=== PATIENT | female | born 1960 | race Caucasian/White ===

== ENCOUNTER 2018-06-06 01:56 | Inpatient (IN) ==
[2018-06-06] MEDS ORDERED: Naloxone 0.4 MG/ML INJ IVP PRN ×3 (04:01→05:34)
--- NOTE | 2018-06-06 04:03 | Internal Med History&Physical ---
<Sandi John - Last Filed: 06/06/18 05:05> Date of Encounter: 06/06/18 Time of Encounter: 04:03 Internal Medicine - H&P: HPI Chief complaint: palpitations Admitted From: Hospital to Hospital Transfer Plans for Post Hospital Care: Home History of present illness: Ms. Schmitz is a 58 year old female history of A fib presented to [place] ED with palpitations. Describes heavy feeling in her chest with shortness of breath above her baseline onset 1:30 yesterday. In ED, she was tachycardia 155 and found to be in A fib with RVR and started on cardizem drip- tachycardia improved to 90-100s. She was last treated for A fib with RVR at [place] one year ago and she describes this feeling as similar but less severe - this has occurred several times in past. She last saw [facility] one year ago and remembers having tests but not what kind - records show EKGs. She reports adherence with her medications but states there is one she can't remember name of. She has history of migraine headaches and start one earlier this week - it was same as her normal but vision was blurred then - now head with out changes in vision. She has COPD; cough and mucus is at baseline. Smoking 45 pkyr . She used oxygen 2L at night after pulse ox overnight but has never had sleep study. She was newly diagnosed with diabetes last week and started on Jardiance after puritic reaction to metformin. She was hypothyroid post ablation but was told to stop taking medication because normal TSH. She is adopted but knows she have a family history of CA in sibling. Past Med Surg Social Fam HX - Past Medical History Medical history: asthma, atrial fibrillation, diabetes, hypertension, kidney stones, migraine, thyroid disease Psychiatric history: anxiety - Past Surgical History Surgical History: cholecystectomy, hysterectomy, other Additional surgical history: feet sx - Social History Smoking Status: Current every day smoker Packs per day: 1.5 Smokeless Tobacco Status: No Alcohol use: none Drug use: none Internal Medicine - H&P: Meds Albuterol Sulfate [Proventil Hfa] 2 puff IH Q4HR PRN 12/09/15 [History] Aspirin [Ecotrin] 325 mg PO DAILY 06/05/18 [History] Diltiazem CD (24hr) [Cardizem CD] 240 mg PO DAILY 06/05/18 [History] Empagliflozin [Jardiance] 10 mg PO DAILY 06/05/18 [History] hydroCHLOROthiazide [Hydrochlorothiazide] 25 mg PO DAILY 06/05/18 [History] 3 Allergy/AdvReac Type Severity Reaction Status Date / Time aspartame Allergy Hives Verified 02/23/16 21:57 Penicillins [PCN] Allergy Hives Verified 02/23/16 21:57 All Systems PM: A 10-system review of systems was performed and is negative for pertinent findings except as documented above in the HPI. - Constitutional Constitutional: as per HPI, no chills, no fatigue, no fever(s) - EENT Eyes: blurry vision, change in vision, no loss of vision - Cardiovascular Cardiovascular ROS IM: chest pain, diaphoresis, dyspnea, palpitations, no lightheadedness, no syncope - Respiratory Respiratory: cough, dyspnea, excessive phlegm production, no wheezing, no stridor - Gastrointestinal Gastrointestinal: no constipation, no diarrhea, no vomiting - Genitourinary Genitourinary: no difficulty urinating, no dysuria, no urinary frequency - Integumentary Integumentary IM: pruritus, rash Additional comments: resolved off metformin - Neurological Neurological ROS: headache(s) - Endocrine Endocrine IM: polydipsia, no polyphagia, no polyuria - Constitutional General appearance: Present: A&O X 3, pleasant, no acute distress, obese, answers questions appropriately Exam: sitting comfortably on bed laughing - Head Head exam: Present: atraumatic, normocephalic - ENT ENT exam: Present: mucous membranes moist, normal oropharynx - Respiratory Respiratory exam: Present: wheezes. Absent: accessory muscle use, rales, respiratory distress Additional comments: mild wheeze upper left lobe - Cardiovascular Cardiovascular exam: Present: irregular rhythm, tachycardia - GI/Abdominal GI/Abdominal exam: Present: normal bowel sounds, soft. Absent: guarding, mass, tenderness - Extremities Exam Extremities exam: Present: full ROM, pedal edema, radial pulses palpable and symmetrical. Absent: calf tenderness, tenderness Additional comments: trace edema - Psychiatric Psychiatric exam: Present: normal affect, normal mood. Absent: agitated - Assessment and plan (1) Atrial fibrillation with rapid ventricular response Current Visit: No Status: Acute Assessment and plan: CADVAS score 3; unknown etiology of repeated episodes of RVR with out apparent inciting factor - continue to titrate Cardizem drip - start heparin drip - consult cardiology as established patient (2) COPD (chronic obstructive pulmonary disease) Current Visit: Yes Status: Acute Assessment and plan: suspect at baseline; Chest X-ray shows COPD but no acute process - continue home inhalers - counseled to cease smoking - duoneb q 6hr PRN Qualifiers: Qualified Code(s): J44.9 - Chronic obstructive pulmonary disease, unspecified (3) Diabetes mellitus Current Visit: Yes Status: Acute Assessment and plan: -hold jardiance - start ISS - diabetic diet Qualifiers: Diabetes mellitus type: type 2 Diabetes mellitus skilled nursing insulin use: without vermin exterminator use Diabetes mellitus complication status: without complication Qualified Code(s): E11.9 - Type 2 diabetes mellitus without complications (4) Polycythemia Current Visit: Yes Status: Chronic Assessment and plan: HgB 16.6 at her baseline; suspect due to smoking or underlying sleep apnea - consider out patient sleep study - Time Spent With Patient Total time spent is greater than 50% in coordination of care (as documented) at patient's floor/unit and/or counseling patient: 25 - 35 minutes <Sylvain Lara - Last Filed: 06/06/18 07:41> Date of Encounter: 06/06/18 Internal Medicine - H&P: HPI History of present illness: Ms. Schmitz is a 58 year old female All Systems PM: A 10-system review of systems was performed and is negative for pertinent findings except as documented above in the HPI. - Constitutional Vitals: Temp Pulse Resp BP Pulse Ox 98.2 F 88 16 114/64 91 06/06/18 07:21 06/06/18 07:21 06/06/18 07:21 06/06/18 07:21 06/06/18 07:21 - Time Spent With Patient Total time spent is greater than 50% in coordination of care (as documented) at patient's floor/unit and/or counseling patient: - Attending Attestation Patient seen and examined. Chart was reviewed. A. fib with RVR. Now improved on Cardizem drip. Attempt to wean off and transition to PO. Patient has a CHADsVASC OF 3. Discussed risk of stroke with patient and need for prophylaxis. Will start heparin drip. Cardiology consult for the morning.
[2018-06-06] MEDS ORDERED: Ondansetron ODT 4 MG TAB.RAPDIS SL PRN (04:07)
[2018-06-06] MEDS ORDERED: Acetaminophen/Aspirin/Caffeine TABLET PO PRN (04:17)
[2018-06-06] MEDS ORDERED: D5% in Water 1,000 ML IVC PRN (04:42)
[2018-06-06] MEDS ORDERED: *HR* Dextrose 50 % in Water (Syg) 50 ML SYRINGE IVP PRN (04:42)
[2018-06-06] MEDS ORDERED: Dextrose Gel 15 GM/37.5 ML TUBE PO PRN ×2 (04:42)
[2018-06-06] MEDS ORDERED: *HR* Heparin 5,000 UNIT/ML VIAL IVP ONE (04:43)
[2018-06-06] MEDS ORDERED: *HR* Heparin 5,000 UNIT/ML VIAL IVP PRN ×2 (04:43)
[2018-06-06] MEDS ORDERED: Heparin 25,000 UNIT/500 ML D5W 25,000 UNIT/500 ML BAG IVC SCH (04:45)
[2018-06-06] MEDS ORDERED: Ipratropium/Albuterol Neb 3 ML IH PRN (04:53)
[2018-06-06 06:01] LABS: Heparin anti-factor XA UFH 0.07 IU/mL (0.30-0.70); INR 1.1; Prothrombin Time 11.9 Seconds (9.4-12.1)
[2018-06-06 06:03] LABS: Activated Partial Thrombo Time 36.5 Seconds (26.0-36.0)
[2018-06-06] MEDS: Insulin LISPRO 300 UNITS/3 ML VIAL SQ SCH ×2 (09:09→12:02)
--- NOTE | 2018-06-06 09:52 | Event Note ---
Date of Encounter: 06/06/18 Time of Encounter: 09:45 Seen and assessed. Agree with plan per night time hospitalist. Will aim to titrate off cardizem drip and start on home dose of po cardizem. Pt doan CHDS2 Vasc score of 3 with diabetes, htn and female sex. Was started on heparin drip overnight. Will transition to xarelto as tolerated. Cardiology was consulted and appreciate recs
[2018-06-06] MEDS ORDERED: Diltiazem CD (24hr) 240 MG CAPSULE PO SCH (10:00)
--- NOTE | 2018-06-06 10:32 | Cardiology Consult Note ---
Date of Encounter: 06/06/18 Time of Encounter: 10:28 Assessment and Plan (1) PAF (paroxysmal atrial fibrillation) Current Visit: Yes Status: Acute Paroxysmal atrial fibrillation, which is not a new diagnosis. Previous TTE [place] normal LV function, stress test negative for ischemia. CHADS-VASc (HTN, DM, FM) 3. Recommend transition from aspirin to for anticoagulation. We discussed the risks, benefits, and alternatives to full AC. She voiced understanding and wishes to proceed. Agree with Xarelto 20 mg daily. Change cardizem back to 240 mg daily. Will add low dose BB. We discussed the possibility of antiarrhythmic therapy. States she will consider in the future. No further inpatient recommendations appear to be necessary at this time. Risk factor modification encouraged, especially tobacco cessation. Outpatient follow-up with cardiology encouraged. Cardiology will sign off. Please call with any questions or concerns. Discussion w patient/family: The assessment and plan as outlined above was discussed with the patient and/or family members who expressed understanding and agreement. All questions were answered. Thank you for involving us in the care of your patient. Please call with any questions. History of Present Illness Consult date: 06/06/18 Requesting physician: Sylvain Lara Consult reason: AF Chief complaint: AF History of present illness: Ms. Schmitz is a 58 year old female with a history of PAF. Presented to an outside ER yesterday with complaints of palpitations. Noted to be in AF with RVR and transferred to [place]. Placed on a Cardizem and heparin drip overnight. Overall, reports she feels much better today. She would like to go home. Holter monitor 04/2016: Sinus rhythm with an average heart rate of 92. Rare PVCs , 5 total. One 4 beat NSVT. Rare PACs averaging 1.7 per hour. No atrial fibrillation. TTE 04/05/2016: LVEF 65-70%. Normal LV, RV size and function. Mild diastolic dysfunction. No significant valvular dysfunction. RVSP not well obtained due to lack of TR. Lexiscan nuclear stress test 03/2016: Perfusion imaging negative for ischemia or prior infarct. No significant ECG changes with regadenoson. Gated LVEF greater than 70%. Past Med Surg Social Fam HX - Past Medical History Medical history: asthma, atrial fibrillation, diabetes, hypertension, kidney stones, migraine, thyroid disease Psychiatric history: anxiety - Past Surgical History Surgical History: cholecystectomy, hysterectomy, other Additional surgical history: feet sx - Social History Smoking Status: Current every day smoker Packs per day: 1.5 Smokeless Tobacco Status: No Alcohol use: none Drug use: none Medications and Allergies Albuterol Sulfate [Proventil Hfa] 2 puff IH Q4HR PRN 12/09/15 [History] Aspirin [Ecotrin] 325 mg PO DAILY 06/05/18 [History] Diltiazem CD (24hr) [Cardizem CD] 240 mg PO DAILY 06/05/18 [History] Empagliflozin [Jardiance] 10 mg PO DAILY 06/05/18 [History] hydroCHLOROthiazide [Hydrochlorothiazide] 25 mg PO DAILY 06/05/18 [History] 3 Allergy/AdvReac Type Severity Reaction Status Date / Time aspartame Allergy Hives Verified 02/23/16 21:57 Penicillins [PCN] Allergy Hives Verified 02/23/16 21:57 All Systems Review: The remainder of the systems were reviewed and are negative - Cardiovascular Cardiovascular: as per HPI, palpitations Physical Examination Vital Signs, Last 4 Hours Temp Pulse Resp BP Pulse Ox 06/06/18 07:21 98.2 F 88 16 114/64 91 General: Conversant, No Apparent Distress HEENT: Atraumatic, Normocephaly, Mucus Membranes Moist Neck: No JVD Cardiac: Reg Rate and Rhythm, Normal S1 and S2, No Murmur Lungs: Other (Scattered rhonchi noted.) Neuro: Alert and responsive, No focal deficits noted Abdomen: Soft, Non-Tender Skin: No rashes noted on visualized skin Musculoskeletal: No Chest Wall Tenderness Extremities: No Clubbing, No Cyanosis, No Edema Results Lab Results 06/06/18 06/06/18 05:43 05:43 INR 1.1 APTT 36.5 H - Imaging and Cardiology Stress Test: report reviewed Echo: report reviewed - EKG Interpretation EKG results cardiology: personally reviewed Consult Discharge Plan - Plan Referrals: Candi Tyler, GALLERY OR MUSEUM ATTENDANT [Primary Care Provider] -
[2018-06-06] MEDS ORDERED: Metoprolol XL (24 HR) Succ 25 MG TAB.ER.24H PO SCH (10:45)
--- NOTE | 2018-06-06 11:30 | Discharge Summary ---
Orders not resulted at time of discharge: Pending orders 06/06/18 07:00 EKG [ECG 12 lead ECG] [ECG] Routine 06/06/18 12:30 Heparin anti-factor XA UFH [COAG] Timed 06/07/18 04:00 Basic Metabolic Panel AM 0400 Complete Blood Count [HEME] AM 0400 Date of Encounter: 06/06/18 Time of Encounter: 11:00 - Discharge Diagnosis (1) Atrial fibrillation with rapid ventricular response Priority: Primary Status: Acute Assessment and Plan: 58 year old female history of A fib presented to [place] ED with palpitations. Describes heavy feeling in her chest with shortness of breath above her baseline onset 1:30 yesterday. In ED, she was tachycardia 155 and found to be in A fib with RVR and started on cardizem drip- tachycardia improved to 90- 100s. She was last treated for A fib with RVR at [place] one year ago and she describes this feeling as similar but less severe - this has occurred several times in past. She was started on a cardizem drip for afib with RVR and heparin drip for anticoagulation for a [id number] score of 3. She was able to be successfully weaned off her cardizem drip and transitioned to po cardizem and metoprolol. She was also transitioned from heparin drip to xarelto. Patient made a sooner than anticipated recovery and will be discharged on cardizem and xarelto per cardiology recs. She was discharged in a stable condition. 35 minutes was spent discharging this patient (2) COPD (chronic obstructive pulmonary disease) Priority: Secondary Status: Acute Qualifiers: Qualified Code(s): J44.9 - Chronic obstructive pulmonary disease, unspecified (3) Diabetes mellitus Priority: Secondary Status: Acute Qualifiers: Diabetes mellitus type: type 2 Diabetes mellitus terminal superintendent insulin use: without terminal superintendent use Diabetes mellitus complication status: without complication Qualified Code(s): E11.9 - Type 2 diabetes mellitus without complications Hospital course: Ms. Schmitz is a 58 year old female - Time Spent with Patient Total time spent providing and/or coordinating discharge services: - Discharge Medications Home Medications: Aspirin [Ecotrin] 325 mg PO DAILY 06/05/18 [History] Diltiazem CD (24hr) [Cardizem CD] 240 mg PO DAILY 06/05/18 [History] Empagliflozin [Jardiance] 10 mg PO DAILY 06/05/18 [History] hydroCHLOROthiazide [Hydrochlorothiazide] 12.5 mg PO DAILY 06/05/18 [History] Albuterol Sulfate [Ventolin Hfa] 2 puff IH Q6H PRN 06/06/18 [History] Atorvastatin Calcium [Lipitor] 20 mg PO HS 06/06/18 [History] Diltiazem CD (24hr) [Cardizem CD] 240 mg PO DAILY #30 cap.er.24h 06/06/18 [Rx] Ergocalciferol (VITAMIN D2) [Vitamin D2] 50,000 unit PO REY 06/06/18 [History] FLUoxetine HCl [Prozac] 20 mg PO DAILY 06/06/18 [History] Fluticasone/Vilanterol [Breo Ellipta 100-25 Mcg INH] 1 puff IH DAILY 06/06/18 [ History] Losartan Potassium [Cozaar] 50 mg PO DAILY 06/06/18 [History] Metformin HCl [Glucophage] 1,000 mg PO BID 06/06/18 [History] Metoprolol XL (24 HR) Succ [Toprol Xl] 25 mg PO DAILY 30 Days #30 tab.er.24h 10/23 [Rx] Rivaroxaban [Xarelto] 20 mg PO 1700 30 Days #30 tablet 06/06/18 [Rx] Allergies/Adverse Reactions: 3 Allergy/AdvReac Type Severity Reaction Status Date / Time aspartame Allergy Hives Verified 06/06/18 13:54 Penicillins [PCN] Allergy Hives Verified 06/06/18 13:54 Date of admission: 06/06/18 03:07 Primary care physician: Candi Tyler CNP Consults: 06/06/18 04:42 Consult to Diabetes Education [CONS] Routine Comment: Reason for Consult: new diagnosis last week - Constitutional Vitals: Temp Pulse Resp BP Pulse Ox 98.2 F 88 16 114/64 91 06/06/18 07:21 06/06/18 07:21 06/06/18 07:21 06/06/18 07:21 06/06/18 07:21 General appearance: Present: A&O X 3, pleasant, no acute distress, obese, answers questions appropriately Exam: comfortable. NAD - Head Head exam: Present: atraumatic, normocephalic - Eye Eye exam: Present: PERRL, conjuntiva pink, sclera anicteric Pupils: Present: PERRL - Neck Neck exam general surgery: Present: supple, trachea midline. Absent: lymphadenopathy - Respiratory Respiratory exam: Present: CTAB. Absent: accessory muscle use, rales, rhonchi, wheezes - Cardiovascular Cardiovascular exam: Present: RRR, +S1, +S2. Absent: diastolic murmur, gallop, rubs, systolic murmur - GI/Abdominal GI/Abdominal exam: Present: normal bowel sounds, soft, no peritoneal signs. Absent: distended, tenderness - Extremities Exam Extremities exam: Present: warm, radial pulses palpable and symmetrical. Absent : calf tenderness, cyanotic, pedal edema - Neurological Exam Neurological exam: Present: CN II-XII intact, oriented X3, no focal deficits. Absent: pronater drift, facial droop, speech deficit - Skin Skin exam: Present: dry, intact - Patient Status Disposition: Home, Self-Care Condition: Good - Discharge Instructions Instructions: Metoprolol (By mouth), Diltiazem (By mouth), Rivaroxaban (By mouth), Atrial Fibrillation (DC), Diabetes Mellitus Type 2 in Adults (DC), Chronic Obstructive Pulmonary Disease (DC) Follow Up With: Candi Tyler WEB PRESSMAN [Primary Care Provider] -
[2018-06-06] MEDS ORDERED: *HR* Rivaroxaban 10 MG TABLET PO SCH ×2 (11:45→17:00)
[2018-06-06 15:47] VITALS: BP 125/59
--- NOTE | 2018-06-09 21:27 | Electrocardiograph Report ---
[place] [id number] Test Date: 2018-06-06 Pat Name: Nasra Schmitz Department: 111 Room: 2N4 Gender: F Geology Technician: : 1960 Requested By: Tatyana Perez Order Number: [id number] Reading MD: Pennie Watkins Measurements Intervals [place] Rate: 70 P: 76 LA: 207 QRS: 53 QRSD: 99 T: 73 QT: 408 QTc: 429 Interpretive Statements SINUS RHYTHM NONSPECIFIC T-WAVE ABNORMALITY Electronically Signed On 06-09-2018 21:26:02 EDT by Pennie Watkins
== END 2018-06-06 17:30 | disposition home or self-care (01) | DRG 310 ==
LOC: 2NENU
PROVIDERS: ADMIT Internal Medicine; ATTEND Internal Medicine

== ENCOUNTER 2018-07-13 13:17 | Inpatient (IN) ==
[2018-07-20] MEDS ORDERED: Naloxone 0.4 MG/ML INJ IVP PRN (08:51)
--- NOTE | 2018-07-20 08:56 | History & Physical Report ---
Date of Encounter: 07/20/18 Time of Encounter: 09:00 24 Hour HP Update - Instructions Instructions: If the History and Physical is less than 30 days old and was completed prior to A.M. admission and or procedure and has NOT been updated on calendar day of procedure please complete this update prior to performing procedure. - Update Patient reports changes in Medical Condition: No Changes in examination, assessment, or condition: No Changes in Medication: No Preop tests/diagnostics Reviewed: Yes Additions to current History and Physical: Seen by Dr. Marcos aWtkins 07/01/2018-- direct admit for [facility]
[2018-07-20] MEDS: Empagliflozin [Jardiance] 10 MG PO SCH (11:31)
[2018-07-20] MEDS: hydroCHLOROthiazide 25 MG TABLET PO SCH (11:31)
[2018-07-20] MEDS: Diltiazem CD (24hr) 240 MG CAPSULE PO SCH (11:31)
[2018-07-20] MEDS: *HR* Rivaroxaban 10 MG TABLET PO SCH (16:40)
[2018-07-20] MEDS: Budesonide/Formoterol 160/4.5 1 PUFF INH IH SCH (19:38)
[2018-07-20] MEDS ORDERED: Benzonatate 100 MG CAPSULE PO PRN (21:59)
[2018-07-20] MEDS ORDERED: Saline Nasal Spray 44 ML BOTTLE NS PRN (22:00)
[2018-07-21] MEDS: Levalbuterol Neb 1.25 MG/3 ML IH SCH ×4 (04:19→21:58)
--- NOTE | 2018-07-21 09:11 | Electrophysiology ProgressNote ---
Date of Encounter: 07/21/18 Time of Encounter: 09:10 Assessment and Plan (1) PAF (paroxysmal atrial fibrillation) Current Visit: No Status: Chronic Per EP: Admitted for Rythmol and initiation for symptomatic paroxysmal atrial fibrillation. Status post 3 doses of Rythmol 150 mg by mouth every 8 hours. Remain sinus rhythm on telemetry. Current ECG shows: SR 77, QRS 107ms. Will make nothing by mouth after midnight in case needs cardioversion tomorrow. No YRN would be warranted. Anticipate discharge to home tomorrow. Regarding long-term anticoagulation, remains on Xarelto-- reports no missed doses for the past 30 days. Discussion w patient/family: The assessment and plan as outlined above was discussed with the patient who expressed understanding and agreement. All questions were answered. Thank you for involving us in the care of your patient. Please call with any questions. Subjective Principal diagnosis: PAF, antiarrhythmic initiation Interval history: Patient denies any chest pain, shortness of breath, palpitations. Reports has history of COPD and utilizes oxygen at night. Objective Vital Signs, Last 4 Hours Temp Pulse Resp BP Pulse Ox 07/21/18 07:47 97.9 F 81 18 134/76 89 General: Conversant, No Apparent Distress HEENT: Atraumatic, Normocephaly, Mucus Membranes Moist Neck: No JVD, Normal carotid pulses Cardiac: Reg Rate and Rhythm, Normal S1 and S2, No Murmur Lungs: Normal Breath Sounds, No Wheeze, Rales, Rhonchi Neuro: Alert and responsive, No focal deficits noted Abdomen: Soft, Non-Tender Skin: No rashes noted on visualized skin Musculoskeletal: No Chest Wall Tenderness Extremities: No Clubbing, No Cyanosis, No Edema, Normal Pulses Results - EKG Interpretation EKG results cardiology: other (Telemetry reviewed with average heart rate the past 12 hours 79, currently sinus rhythm in the 80s, no events noted) - VTE Reasons for not Prescribing Prophylaxis: Treatment not Indicated - Low risk for VTE Consult Discharge Plan - Plan Referrals: Candi Tyler, BED SETTER [Primary Care Provider] -
[2018-07-21] MEDS: hydroCHLOROthiazide 25 MG TABLET PO SCH (10:21)
[2018-07-21] MEDS: Diltiazem CD (24hr) 240 MG CAPSULE PO SCH (10:21)
[2018-07-21] MEDS: Empagliflozin [Jardiance] 10 MG PO SCH (10:22)
[2018-07-21] MEDS: Budesonide/Formoterol 160/4.5 1 PUFF INH IH SCH ×2 (10:54→21:58)
[2018-07-21] MEDS: *HR* Rivaroxaban 10 MG TABLET PO SCH (17:52)
[2018-07-22] MEDS: Levalbuterol Neb 1.25 MG/3 ML IH SCH ×4 (03:37→21:18)
[2018-07-22 07:21] VITALS: BP 133/74
[2018-07-22] MEDS: hydroCHLOROthiazide 25 MG TABLET PO SCH (09:27)
[2018-07-22] MEDS: Diltiazem CD (24hr) 240 MG CAPSULE PO SCH (09:27)
[2018-07-22] MEDS: Empagliflozin [Jardiance] 10 MG PO SCH (09:28)
[2018-07-22] MEDS: Budesonide/Formoterol 160/4.5 1 PUFF INH IH SCH ×2 (10:11→21:18)
--- NOTE | 2018-07-22 10:12 | Discharge Summary ---
- NOTES TO OUTPATIENT PROVIDER Notes to Outpatient Provider: Admitted for anti-arrythmic initiation with rhythmol. Orders not resulted at time of discharge: Pending orders 07/22/18 06:00 ECG 12 lead ECG [ECG] AM 0600 07/23/18 06:00 ECG 12 lead ECG [ECG] AM 0600 Date of Encounter: 07/22/18 Time of Encounter: 09:00 - Discharge Diagnosis (1) PAF (paroxysmal atrial fibrillation) Priority: Primary Status: Chronic Comments: Admitted for rhythmol initiation for known PAF. - Hospital Course Hospital course: Ms. Schmitz is a 58 year old female who was admitted to [facility] for rhythmol ( 150mg Q8 hours) initiation for PAF. Patient is s/p 6 total doses of rhythmol. ECG today with SR, HR 80. QRS 96. QRS stable. Baseline QRS 96ms. Patient also takes cardizem CD 240mg. On xarelto for anticoagulation. Patient has remained SR , average HR previous 12 hours 79. Patient denies bleeding or blood loss. Patient is being prepped for discharge home in stable condition. Patient educated on importance of Q8 hour medication and no missed doses of medication. Patient denies complaints. Patient will follow with [facility], follow up set. - Time Spent with Patient Total time spent providing and/or coordinating discharge services: Less than 30 minutes - Discharge Medications Prescriptions: Propafenone [Rhythmol] 150 mg PO Q8H #90 tablet Home Medications: Empagliflozin [Jardiance] 10 mg PO DAILY 06/05/18 [History] hydroCHLOROthiazide [Hydrochlorothiazide] 12.5 mg PO DAILY 06/05/18 [History] Albuterol Sulfate [Ventolin Hfa] 2 puff IH Q6H PRN 06/06/18 [History] Atorvastatin Calcium [Lipitor] 20 mg PO HS 06/06/18 [History] Ergocalciferol (VITAMIN D2) [Vitamin D2] 50,000 unit PO REY 06/06/18 [History] Fluticasone/Vilanterol [Breo Ellipta 100-25 Mcg INH] 1 puff IH DAILY 06/06/18 [ History] Losartan Potassium [Cozaar] 25 mg PO DAILY 06/06/18 [History] Rivaroxaban [Xarelto] 20 mg PO 1700 30 Days #30 tablet 06/06/18 [Rx] Diltiazem HCl [Cardizem LA] 240 mg PO DAILY 07/03/18 [History] Propafenone [Rhythmol] 150 mg PO Q8H #90 tablet 07/22/18 [Rx] Allergies/Adverse Reactions: 3 Allergy/AdvReac Type Severity Reaction Status Date / Time aspartame Allergy Hives Verified 07/03/18 12:38 Penicillins [PCN] Allergy Hives Verified 07/03/18 12:38 Date of admission: 07/20/18 08:44 Primary care physician: Candi Tyler CNP Consults: 07/20/18 22:00 Consult to Respiratory Therapy [CONS] Routine Reason for Consult: Add flutter valve to patients breathing treatments Call Completed: Yes Discharging clinician: Jossy Gonzalez Anticipated date of discharge: 07/22/18 Physical Examination Vital Signs, Last 4 Hours Temp Pulse Resp BP Pulse Ox 07/22/18 07:20 98.5 F 77 18 133/74 90 General: Conversant, No Apparent Distress HEENT: Atraumatic, Normocephaly, Mucus Membranes Moist Neck: No JVD, Normal carotid pulses Cardiac: Reg Rate and Rhythm, Normal S1 and S2, No Murmur Lungs: Normal Breath Sounds, No Wheeze, Rales, Rhonchi Neuro: Alert and responsive, No focal deficits noted Abdomen: Soft, Non-Tender Skin: No rashes noted on visualized skin Musculoskeletal: No Chest Wall Tenderness Extremities: No Clubbing, No Cyanosis, No Edema, Normal Pulses - Patient Status Disposition: Home, Self-Care Condition: Good Functional capacity at discharge: independent ambulation Overall status at discharge: patient is progressing back to baseline - Discharge Instructions Follow Up With: Candi Tyler CNP [Primary Care Provider] - - Diet and Activity Activity: increase activity as tolerated Diet: diabetic diet, low fat, low cholesterol, low salt diet - VTE Reasons for not Prescribing Prophylaxis: Treatment not Indicated - Low risk for VTE
--- NOTE | 2018-07-23 13:50 | Electrocardiograph Report ---
[address] [place], [place] [address] Test Date: 2018-07-22 Pat Name: Nasra Shcmitz Department: 111 Room: [facility] Gender: F Bolt Sorter: : 1960 Requested By: Zeke Hines Order Number: [id number] Reading MD: Magda Woody Measurements Intervals [place] Rate: 80 P: 27 PA: 184 QRS: 46 QRSD: 96 T: 43 QT: 386 QTc: 422 Interpretive Statements SINUS RHYTHM Electronically Signed On 07-23-2018 13:49:14 EDT by Magda Woody
--- NOTE | 2018-07-23 16:10 | Electrocardiograph Report ---
[address] [place] [address] Test Date: 2018-07-21 Pat Name: Nasra Schmitz Department: 111 Room: [facility] Gender: F Crisis Intervention Specialist: SHAMIKA : 1960 Requested By: Zeke Hines Order Number: [id number] Reading MD: Magda Woody Measurements Intervals [place] Rate: 77 P: 43 WA: 208 QRS: 50 QRSD: 107 T: 43 QT: 405 QTc: 437 Interpretive Statements SINUS RHYTHM INCOMPLETE RIGHT BUNDLE BRANCH BLOCK SEPTAL MYOCARDIAL INFARCTION, PROBABLY OLD Electronically Signed On 07-23-2018 16:09:26 EDT by Magda Woody
--- NOTE | 2018-07-25 21:55 | Electrocardiograph Report ---
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
== END 2018-07-22 13:00 | disposition home or self-care (01) | DRG 310 ==
LOC: 2NENU 07-20 08:44
PROVIDERS: ADMIT Internal Medicine Clinical Cardiac Electrophysiology; ATTEND Internal Medicine Clinical Cardiac Electrophysiology

== ENCOUNTER 2018-07-23 16:09 | Inpatient (IN) ==
--- NOTE | 2018-07-23 20:04 | Internal Med History&Physical ---
Date of Encounter: 07/23/18 Time of Encounter: 19:28 Internal Medicine - H&P: HPI Chief complaint: SOB and palpitations Admitted From: Home Plans for Post Hospital Care: Home History of present illness: *LIVE* [facility] Hospitalist H&P Patient Name: Nasra Schmitz Date of : 60 Patient Status: Emergency Emergency Provider: Panchito Marrero Date: 07/23/18 19:28 Initialization Date: 07/23/18 19:28 Date of Encounter: 07/23/18 Time of Encounter: 19:28 Internal Medicine - H&P: HPI Chief complaint: shortness of breath and palpitations Admitted From: Home Plans for Post Hospital Care: Home History of present illness: Ms. Schmitz is a 58 year old female with history of Aifb RVR, currnet smoker 1- 2 PPD x 30 years, COPD, polycthemia, DM-II, A flutter with RVR. Pt states she went to an in service today and while she was there she developed progressive SOB. She denies 24/7 home oxygen and states she is only on it QHS. She denies cough or sputum. She states she went into the ED because her oxygen saturation was reportedly in 70's. Pt states she was found to be in Afib in the ED at [place]. She takes Xarelto and states she may have missed a dose or 2 in he past 3 weeks, otherwise she has been compliant. After much probing, pt finally admitted that she intentionally did not take her morning dose and she states "I'm not taking that medication!". She states she missed her afternoon dose. Pt is a transfer from [place] for further management for Afib RVR. She was started on cardizem gtt at [place]. At [place] WBC 10.9, hgb 17.3, hct 52.7, INR 1.1, Na 137, Cr 0.66 Troponin <0.03. Chest x ray XR/XR chest 1V portable IMPRESSION: Mild diffuse interstitial prominence, new from prior exam. This may be on the basis of interstitial edema or atypical pneumonia. Echo Impressions: Normal LV chamber size, wall thickness, and systolic function. LVEF 65-70%. Mild left ventricular diastolic dysfunction. Normal right ventricular structure and function. Unable to estimate RVSP due to lack of TR jet. No significant valvular dysfunction. Left Ventricular Wall Motion: Rest Echo Findings All wall segments showed normal motion. Past Med Surg Social Fam HX - Past Medical History Medical history: asthma, atrial fibrillation, diabetes, hypertension, kidney stones, migraine, thyroid disease Psychiatric history: anxiety - Past Surgical History Surgical History: cholecystectomy, hysterectomy, other Additional surgical history: feet sx - Social History Smoking Status: Current every day smoker Smokeless Tobacco Status: No Alcohol use: none Drug use: none Internal Medicine - H&P: Meds Empagliflozin [Jardiance] 10 mg PO DAILY 06/05/18 [History] hydroCHLOROthiazide [Hydrochlorothiazide] 12.5 mg PO DAILY 06/05/18 [History] Albuterol Sulfate [Ventolin Hfa] 2 puff IH Q6H PRN 06/06/18 [History] Atorvastatin Calcium [Lipitor] 20 mg PO HS 06/06/18 [History] Ergocalciferol (VITAMIN D2) [Vitamin D2] 50,000 unit PO REY 06/06/18 [History] Losartan Potassium [Cozaar] 25 mg PO DAILY 06/06/18 [History] Rivaroxaban [Xarelto] 20 mg PO 1700 30 Days #30 tablet 06/06/18 [Rx] Diltiazem HCl [Cardizem LA] 240 mg PO DAILY 07/03/18 [History] Propafenone [Rhythmol] 150 mg PO Q8H #90 tablet 07/22/18 [Rx] Fluticasone/Vilanterol [Breo Ellipta 100-25 Mcg INH] 1 puff IH DAILY 07/23/18 [History] Allergy/AdvReac Type Severity Reaction Status Date / Time aspartame Allergy Hives Verified 07/23/18 14:44 Penicillins [PCN] Allergy Hives Verified 07/23/18 14:44 All Systems PM: A 10-system review of systems was performed and is negative for pertinent findings except as documented above in the HPI. - Constitutional Vitals: Temp Pulse Resp BP Pulse Ox 99.9 F H 140 20 109/52 92 07/23/18 14:46 07/23/18 16:38 07/23/18 16:38 07/23/18 16:38 07/23/18 16:38 General appearance: Present: A&O X 3, morbidly obese Exam: mild respiratory distress. - Head Head exam: Present: atraumatic, normocephalic - Eye Eye exam: Present: PERRL, conjuntiva pink, sclera anicteric Pupils: Present: PERRL - Neck Neck exam general surgery: Present: supple, trachea midline. Absent: lymphadenopathy - Respiratory Respiratory exam: Present: CTAB. Absent: accessory muscle use, rales, rhonchi, wheezes - Cardiovascular Cardiovascular exam: Present: RRR, +S1, +S2. Absent: diastolic murmur, gallop, rubs, systolic murmur - GI/Abdominal GI/Abdominal exam: Present: normal bowel sounds, soft, no peritoneal signs. Absent: distended, tenderness - Extremities Exam Extremities exam: Present: warm, radial pulses palpable and symmetrical. Absent: calf tenderness, cyanotic, pedal edema - Neurological Exam Neurological exam: Present: CN II-XII intact, oriented X3, no focal deficits. Absent: pronater drift, facial droop, speech deficit - Skin Skin exam: Present: dry, intact Internal Med - H&P Results - Labs CBC & Chem 7: 07/23/18 15:18 07/23/18 15:18 Labs: Short CBC 07/23/18 Range/Units 15:18 WBC 10.9 (4.3-11.1) K/mcL Hgb 17.3 H (11.5-15.4) g/dL Hct 52.7 H (35.3-44.9) % Plt Count 307 (140-400) K/mcL Neutrophils # 7.5 (1.6-8.9) K/mcL BMP 07/23/18 15:18 Sodium 137 Potassium 3.9 Chloride 97 L Carbon Dioxide 34 H BUN 13 Creatinine 0.66 Glucose 188 H Calcium 9.8 Cardiac Enzymes 07/23/18 Range/Units 15:18 Troponin I < 0.03 (< 0.04) ng/mL - Impressions ITS Impressions Chest X-Ray 07/23/18 15:03 IMPRESSION: Mild diffuse interstitial prominence, new from prior exam. This may be on the basis of interstitial edema or atypical pneumonia. D/ / 07/23/2018 15:35:00 Santy Castillo MD / katie Interpreting Provider: Santy Castillo MD - Assessment and plan (1) Atrial flutter with rapid ventricular response Status: Acute Assessment and plan: Pt was discharged yesterday following management for Afib RVR. Rhythmol had been initiated at 150 mg PO Q8 hrs. She had received a total of 6 doses prior to DC and was in SR with HR in 70's prior to her discharge. Discussed with cardiology and will see pt in consult. Dr. Woo advised to hold off on rhythmol for now and cont on cardizem gtt. Pt likely has some mild interstitial edema on chest x ray. Will give one time dose Lasix and reassess. (2) Chest pain Status: Acute Assessment and plan: Likely due to afib and SOB. Will monitor on tele. Will check troponin. Troponin likely to bump due to pt being in afib rvr. Qualifiers: Chest pain type: precordial pain Qualified Code(s): R07.2 - Precordial pain (3) Diabetes mellitus Status: Chronic Assessment and plan: Monitor glucose and adding sliding scale insulin to Empagliflozin Qualifiers: Diabetes mellitus type: type 2 Diabetes mellitus intermediate card tender insulin use: without intermediate card tender use Diabetes mellitus complication status: without complication Qualified Code(s): E11.9 - Type 2 diabetes mellitus without complications (4) Acute exacerbation of chronic obstructive pulmonary disease (COPD) Status: Acute Assessment and plan: Will place on Xopenex ad IV solumedrol. Will continue oxygen supplement (5) Acute and chronic respiratory failure Status: Acute Assessment and plan: Will continue on oxygen supplement for. Pt tolerating 2L NC sat 92%. Sat was 70% on RA at [place]. Past Med Surg Social Fam HX - Past Medical History Medical history: asthma, atrial fibrillation, diabetes, hypertension, kidney stones, migraine, thyroid disease Additional medical history: hyperthyroid Psychiatric history: anxiety - Past Surgical History Surgical History: cholecystectomy, hysterectomy, other Additional surgical history: feet sx - Social History Smoking Status: Current every day smoker Smokeless Tobacco Status: No Alcohol use: none Drug use: none - Family History Sister Hx Family Cardiac Disorders: Yes Internal Medicine - H&P: Meds Empagliflozin [Jardiance] 10 mg PO DAILY 06/05/18 [History] hydroCHLOROthiazide [Hydrochlorothiazide] 12.5 mg PO DAILY 06/05/18 [History] Albuterol Sulfate [Ventolin Hfa] 2 puff IH Q6H PRN 06/06/18 [History] Atorvastatin Calcium [Lipitor] 20 mg PO HS 06/06/18 [History] Ergocalciferol (VITAMIN D2) [Vitamin D2] 50,000 unit PO REY 06/06/18 [History] Losartan Potassium [Cozaar] 25 mg PO DAILY 06/06/18 [History] Rivaroxaban [Xarelto] 20 mg PO 1700 30 Days #30 tablet 06/06/18 [Rx] Diltiazem HCl [Cardizem LA] 240 mg PO DAILY 07/03/18 [History] Propafenone [Rhythmol] 150 mg PO Q8H #90 tablet 07/22/18 [Rx] Fluticasone/Vilanterol [Breo Ellipta 100-25 Mcg INH] 1 puff IH DAILY 07/23/18 [History] Allergy/AdvReac Type Severity Reaction Status Date / Time aspartame Allergy Hives Verified 07/23/18 14:44 Penicillins [PCN] Allergy Hives Verified 07/23/18 14:44 All Systems PM: A 10-system review of systems was performed and is negative for pertinent findings except as documented above in the HPI. - Constitutional Vitals: Temp Pulse Resp BP Pulse Ox 98.4 F 110 18 127/99 90 07/23/18 18:09 07/23/18 18:09 07/23/18 18:09 07/23/18 18:09 07/23/18 18:09 General appearance: Present: A&O X 3 Exam: . - Head Head exam: Present: atraumatic, normocephalic - Eye Eye exam: Present: PERRL, conjuntiva pink, sclera anicteric Pupils: Present: PERRL - Neck Neck exam general surgery: Present: supple, trachea midline. Absent: lymphadenopathy - Respiratory Respiratory exam: Present: CTAB. Absent: accessory muscle use, rales, rhonchi, wheezes - Cardiovascular Cardiovascular exam: Present: RRR, +S1, +S2. Absent: diastolic murmur, gallop, rubs, systolic murmur - GI/Abdominal GI/Abdominal exam: Present: normal bowel sounds, soft, no peritoneal signs. Absent: distended, tenderness - Extremities Exam Extremities exam: Present: warm, radial pulses palpable and symmetrical. Absent: calf tenderness, cyanotic, pedal edema - Neurological Exam Neurological exam: Present: CN II-XII intact, oriented X3, no focal deficits. Absent: pronater drift, facial droop, speech deficit - Skin Skin exam: Present: dry, intact - Time Spent With Patient Total time spent is greater than 50% in coordination of care (as documented) at patient's floor/unit and/or counseling patient: 25 - 35 minutes
[2018-07-23] MEDS ORDERED: Naloxone 0.4 MG/ML INJ IVP PRN (20:09)
[2018-07-23] MEDS ORDERED: Acetaminophen 325 MG TABLET PO PRN (20:09)
[2018-07-23] MEDS ORDERED: *HR* Dextrose 50 % in Water (Syg) 50 ML SYRINGE IVP PRN (20:17)
[2018-07-23] MEDS ORDERED: Dextrose Gel 15 GM/37.5 ML TUBE PO PRN ×2 (20:17)
[2018-07-23] MEDS ORDERED: D5% in Water 1,000 ML IVC PRN (20:17)
[2018-07-23] MEDS ORDERED: Levalbuterol 1 PUFF INHALER IH PRN (21:44)
[2018-07-23] MEDS ORDERED: Levalbuterol Neb 1.25 MG/3 ML ONE (21:49)
[2018-07-23] MEDS: Levalbuterol Neb 1.25 MG/3 ML IH SCH (21:52)
[2018-07-23] MEDS: MethylPREDNISolone 40 MG/ML VIAL IVP SCH (23:52)
[2018-07-24] MEDS ORDERED: *HR* Metoprolol 5 MG/5 ML VIAL IVP ONE (02:01)
[2018-07-24] MEDS: Levalbuterol Neb 1.25 MG/3 ML IH SCH ×4 (03:52→22:04)
[2018-07-24 04:15] LABS: Basophils # 0.1 K/mcL (0.0-0.2); Basophils % 0.8 %; Eosinophils % 0.2 %; Hematocrit 52.2 % (35.3-44.9); Hemoglobin 16.3 g/dL (11.5-15.4); Immature Granulocytes % 0.9 % (0-4); Lymphocytes # 0.9 K/mcL (0.6-4.6); Lymphocytes % 7.3 %; Mean Corpuscular HGB Conc 31.2 g/dL (31.6-35.5); Mean Corpuscular Hemoglobin 29.1 pg (28.0-33.3); Mean Platelet Volume 10.1 fL (9.4-12.4); Monocytes # 0.5 K/mcL (0.0-1.3); Monocytes % 3.6 %; Platelet Count 305 K/mcL (140-400); Red Blood Count 5.61 M/mcL (3.82-4.97); Red Cell Distribution Width 13.3 % (11.5-14.5); Segmented Neutrophils % 87.2 %
[2018-07-24 04:46] LABS: BUN/Creatinine Ratio 18 (6-26); Blood Urea Nitrogen 12 mg/dL (6-20); Carbon Dioxide 29 mEq/L (23-29); Chloride 103 mEq/L (98-107); Glucose 285 mg/dL (70-105); Osmolality,Calculated 292 (280-300); Sodium 136 mEq/L (136-145); eGFR For Non-African Americans > 60 (> 60)
[2018-07-24 04:47] LABS: Calcium 9.3 mg/dL (8.6-10.3)
[2018-07-24] MEDS ORDERED: Insulin LISPRO 300 UNITS/3 ML VIAL SQ STA (05:30)
[2018-07-24] MEDS: MethylPREDNISolone 40 MG/ML VIAL IVP SCH ×3 (05:50→18:01)
[2018-07-24] MEDS ORDERED: Insulin LISPRO 300 UNITS/3 ML VIAL SQ SCH (07:30)
[2018-07-24] MEDS ORDERED: Furosemide 20 MG/2 ML VIAL IVP ONE (09:08)
--- NOTE | 2018-07-24 09:15 | Internal Med Progress Note ---
Hospitalist Progress Note - Encounter Date of Encounter: 07/24/18 Time of Encounter: 09:10 - Subjective Interval History: Pt states she is feeling better than she did yesterday. She denies chest pain. HR in SR at the moment. She does report coughing. She denies fever, chills, N/V or diarrhea. - Exam Vitals: Temp Pulse Resp BP Pulse Ox 98.4 F 72 18 133/74 94 07/24/18 07:49 07/24/18 07:49 07/24/18 07:49 07/24/18 07:49 07/24/18 07:49 Exam: General appearance: Present: A&O X 3 Exam: - Head Head exam: Present: atraumatic, normocephalic - Eye Eye exam: Present: PERRL, conjuntiva pink, sclera anicteric Pupils: Present: PERRL - Neck Neck exam general surgery: Present: supple, trachea midline. Absent: lymphadenopathy - Respiratory Respiratory exam: Present: expiratory wheezing but better than 07/23/2018. Absent: accessory muscle use, rales, rhonchi, - Cardiovascular Cardiovascular exam: Present: RRR, +S1, +S2. Absent: diastolic murmur, gallop, rubs, systolic murmur - GI/Abdominal GI/Abdominal exam: Present: normal bowel sounds, soft, no peritoneal signs. Absent: distended, tenderness - Extremities Exam Extremities exam: Present: warm, radial pulses palpable and symmetrical. Absent: calf tenderness, cyanotic, pedal edema - Neurological Exam Neurological exam: Present: CN II-XII intact, oriented X3, no focal deficits. Absent: pronater drift, facial droop, speech deficit - Skin Skin exam: Present: dry, intact - Assessment and Plan (1) Atrial fibrillation with RVR Current Visit: Yes Status: Acute Assessment and Plan: Pt was discharged yesterday following management for Afib RVR. Rhythmol had been initiated at 150 mg PO Q8 hrs. She had received a total of 6 doses prior to DC and was in SR with HR in 70's prior to her discharge. Discussed with cardiology and will see pt in consult. Dr. Woo advised to hold off on rhythmol and cont on cardizem gtt. Pt likely has some mild interstitial edema on chest x ray. Given one time dose Lasix. Pt states she does not want to take rhythmol due to SOB. Cardiology to discuss with patient a different antiarrhythmic medication such as sotalol versus only rate control. Since patient's last dose was yesterday, cardiology waiting until tomorrow before possibly starting a different antiarrhythmic. Cardiology states to DC cardizem gtt and resume PO Cardizem home 240 mg PO. Continue with Xarelto for anticoagulation, CHADS-VASc 3. (2) Diabetes mellitus Current Visit: No Status: Chronic Assessment and Plan: Monitor glucose. Will start on Levemir and on sliding scale insulin. Pt states home Empagliflozin not in the original labeled bottle so advised her not tjo take it while she is in hospital as pharmacy cannot confirm the medication without original bottle. (3) Chest pain Current Visit: No Status: Acute Assessment and Plan: Resolved. Likely due to SOB and afib. Troponin <0.03. Seen by cardiology. Chest x ray XR/XR chest 1V portable IMPRESSION: Mild diffuse interstitial prominence, new from prior exam. This may be on the basis of interstitial edema or atypical pneumonia. Echo Impressions: Normal LV chamber size, wall thickness, and systolic function. LVEF 65-70%. Mild left ventricular diastolic dysfunction. Normal right ventricular structure and function. Unable to estimate RVSP due to lack of TR jet. No significant valvular dysfunction. Left Ventricular Wall Motion: Rest Echo Findings All wall segments showed normal motion. (4) Acute exacerbation of chronic obstructive pulmonary disease (COPD) Current Visit: No Status: Acute Assessment and Plan: Placed on Xopenex and IV solumedrol. Avoiding albuterol due to afib Will continue oxygen supplement. Will likely benefit from home oxygen evaluation at discharge. (5) Acute and chronic respiratory failure Current Visit: No Status: Acute Assessment and Plan: Continue on oxygen supplement for now. Pt tolerating 2L NC sat 92%. Sat was 70% on RA at [place]. DVT Prophylaxis: Xarelto - Summary of Assessment and Plan Summary of Assessment and Plan: Ms. Schmitz is a 58 year old female with history of Aifb RVR, currnet smoker 1- 2 PPD x 30 years, COPD, polycthemia, DM-II, A flutter with RVR. Pt states she went to an in service today and while she was there she developed progressive SOB. She denies 24/7 home oxygen and states she is only on it QHS. She denies cough or sputum. She states she went into the ED because her oxygen saturation was reportedly in 70's. Pt states she was found to be in Afib in the ED at [place]. She takes Xarelto and states she may have missed a dose or 2 in he past 3 weeks, otherwise she has been compliant. After much probing, pt finally admitted that she intentionally did not take her morning dose and she states "I'm not taking that medication!". She states she missed her afternoon dose. Pt is a transfer from [place] for further management for Afib RVR. She was started on cardizem gtt at [place]. - Time Spent with Patient Total time spent is greater than 50% in coordination of care (as documented) at patient's floor/unit and/or counseling patient: less than 15 minutes Plan of Care Discussed with: patient Internal Medicine: Result - Labs CBC & Chem 7: 07/24/18 03:32 07/24/18 03:32 Labs: Short CBC 07/24/18 Range/Units 03:32 WBC 12.7 H (4.3-11.1) K/mcL Hgb 16.3 H (11.5-15.4) g/dL Hct 52.2 H (35.3-44.9) % Plt Count 305 (140-400) K/mcL Neutrophils # 11.0 H (1.6-8.9) K/mcL BMP 07/24/18 03:32 Sodium 136 Potassium 5.0 D Chloride 103 Carbon Dioxide 29 BUN 12 Creatinine 0.66 Glucose 285 H Calcium 9.3 Consult Discharge Plan - Plan Referrals: NONE,PCP [Primary Care Provider] - (2) Diabetes mellitus Qualifiers: Diabetes mellitus type: type 2 Diabetes mellitus jail insulin use: without jail use Diabetes mellitus complication status: without complication Qualified Code(s): E11.9 - Type 2 diabetes mellitus without complications (3) Chest pain Qualifiers: Chest pain type: precordial pain Qualified Code(s): R07.2 - Precordial pain
[2018-07-24] MEDS: hydroCHLOROthiazide 25 MG TABLET PO SCH (09:21)
[2018-07-24] MEDS: Nicotine 14 MG PATCH.TD24 TD SCH (09:21)
--- NOTE | 2018-07-24 12:56 | Cardiology Consult Note ---
<Leigh Palomares M - Last Filed: 07/24/18 13:25> Date of Encounter: 07/24/18 Time of Encounter: 12:35 Assessment and Plan (1) PAF (paroxysmal atrial fibrillation) Current Visit: Yes Status: Acute Patient missed a dose of rhythmol yesterday. Started on 07/20/18 and converted to sinus while on rhythmol. Discharged on 150mg q8h. Converted this morning to sinus rhythm with rate 75-85 while on cardizem gtt. Prior TTE with normal LV function, 65-70%, and stress test negative for ischemia. Patient states she does not want to take rhythmol secondary to shortness of breath. Will discuss with patient a different antiarrhythmic medication such as sotalol versus only rate control. Patient's last dose yesterday. Wait until tomorrow before possibly starting a different antiarrhythmic. Discontinue cardizem drip and resume Cardizem at home dose, 240mg. Continue with Xarelto for anticoagulation, CHADS-VASc 3. Discussion w patient/family: The assessment and plan as outlined above was discussed with the patient and/or family members who expressed understanding and agreement. All questions were answered. Thank you for involving us in the care of your patient. Please call with any questions. History of Present Illness Consult date: 07/24/18 Requesting physician: Bertha Dodson Consult reason: Afib RVR Chief complaint: shortness of breath History of present illness: Ms. Schmitz is a 58 year old female with past medical history including atrial fibrillation on xarelto, COPD, diabetes mellitus type II, who presents with a chief complaint of shortness of breath. Patient was recently hospitalized for atrial fibrillation with RVR. She was started on rhythmol on 07/20/18. She converted while on rhythmol. She was discharged on rhythmol 150mg PO q8h and in sinus rhythm. She was also discharged home with cardizem CD 240mg and on xarelto for anticoagulation. Patient was discharged on 07/22/18. Patient states yesterday evening she was feeling short of breath at an in service class. Her oxygen saturation was noted to be 73%. She did not put on any oxygen that time and went home after the class finished. She continued o feel progressively short of breath and did not take her rhythmol dose. She came to the ED for further evaluation. En route she states she developed palpitations and felt like she was back in atrial fibrillation. Denies chest pain, lightheadedness, abdominal pain, nausea, diaphoresis. At [facility], she was noted to be in atrial fibrillation and started on cardizem gtt and transfered to [place]. Patient remained on cardizem gtt overnight and rhythmol has been held. Patient converted today to sinus rhythm with rate 75-85 while on cardizem. CXR with mild interstitial edema. She was given one dose of Lasix. Patient states she believes the rhythmol is making her short of breath and does not want to continue taking it. At time of examination, patient states she is feeling better. Oxygenating on 4L O2 per NC and denies shortness of breath, chest pain, palpitations, or any acute complaints.Currently heart rate 80 and sinus rhythm. Past Med Surg Social Fam HX - Past Medical History Medical history: asthma, atrial fibrillation, diabetes, hypertension, kidney stones, migraine, thyroid disease Additional medical history: hyperthyroid Psychiatric history: anxiety - Past Surgical History Surgical History: cholecystectomy, hysterectomy, other Additional surgical history: feet sx - Social History Smoking Status: Current every day smoker Smokeless Tobacco Status: No Alcohol use: none Drug use: none - Family History Sister Hx Family Cardiac Disorders: Yes Medications and Allergies RX: Empagliflozin [Jardiance] 10 mg PO DAILY 06/05/18 [History] RX: hydroCHLOROthiazide [Hydrochlorothiazide] 12.5 mg PO DAILY 06/05/18 [History] RX: Albuterol Sulfate [Ventolin Hfa] 2 puff IH Q6H PRN 06/06/18 [History] RX: Atorvastatin Calcium [Lipitor] 20 mg PO HS 06/06/18 [History] RX: Ergocalciferol (VITAMIN D2) [Vitamin D2] 50,000 unit PO REY 06/06/18 [Histor y] RX: Losartan Potassium [Cozaar] 25 mg PO DAILY 06/06/18 [History] RX: Rivaroxaban [Xarelto] 20 mg PO 1700 30 Days #30 tablet 06/06/18 [Rx] RX: Diltiazem HCl [Cardizem LA] 240 mg PO DAILY 07/03/18 [History] RX: Propafenone [Rhythmol] 150 mg PO Q8H #90 tablet 07/22/18 [Rx] Fluticasone/Vilanterol [Breo Ellipta 100-25 Mcg INH] 1 puff IH DAILY 07/23/18 [History] Allergy/AdvReac Type Severity Reaction Status Date / Time aspartame Allergy Hives Verified 07/23/18 14:44 Penicillins [PCN] Allergy Hives Verified 07/23/18 14:44 All Systems Review: The remainder of the systems were reviewed and are negative - Constitutional Constitutional: no chills, no fever(s), no headache(s), no lethargy - EENT Eyes: no blurred vision Nose, mouth and throat: no dysphagia - Cardiovascular Cardiovascular: irregular heart rhythm, palpitations, no chest pain at rest, no chest pain with exertion, no diaphoresis, no dyspnea on exertion - Respiratory Respiratory: dyspnea, no cough - Gastrointestinal Gastrointestinal: no abdominal pain, no constipation, no nausea - Genitourinary Genitourinary: no dysuria - Musculoskeletal Musculoskeletal: no myalgias - Integumentary Integumentary: no rash - Neurological Neurological: no dizziness, no numbness, no tingling - Hematological/Lymphatic Hematologic/Lymphatic: no easy bruising Physical Examination Vital Signs, Last 4 Hours Temp Pulse Resp BP Pulse Ox 07/24/18 12:02 97.8 F 84 17 138/73 92 07/24/18 10:13 18 90 General: Conversant, No Apparent Distress HEENT: Atraumatic, Normocephaly Neck: No JVD Cardiac: Reg Rate and Rhythm, Normal S1 and S2, No Murmur Lungs: Normal Breath Sounds, No Wheeze, Rales, Rhonchi, Other (On O2 per NC) Neuro: Alert and responsive, No focal deficits noted Abdomen: Soft, Non-Tender Skin: No rashes noted on visualized skin Musculoskeletal: No Chest Wall Tenderness Extremities: No Edema Results 07/24/18 03:32 07/24/18 03:32 Lab Results 07/24/18 07/24/18 03:32 03:32 WBC 12.7 H Hgb 16.3 H Hct 52.2 H Plt Count 305 Sodium 136 Potassium 5.0 D Chloride 103 Carbon Dioxide 29 BUN 12 Creatinine 0.66 Glucose 285 H Calcium 9.3 - Imaging and Cardiology Chest Xray: report reviewed Echo: report reviewed - EKG Interpretation EKG results cardiology: personally reviewed (Atrial flutter/tachycardia with rate 131. Incomplete RBBB. No ST elevation or signs of acute ischemia.) Consult Discharge Plan - Plan Referrals: NONE,PCP [Primary Care Provider] - <Marcos Watkins - Last Filed: 07/24/18 13:32> - Attending Attestation I examined this patient and my medical decision-making was reviewed with the Resident Physician. I agree with the documented findings, disposition and treatment plan as described except to the extent set forth below. PAF, recently was admitted for rythmol titration. Noted possible side effects after discharge so stopped rythmol and returned with SOB and AF RVR. Will offer alternate antiarrythmic or rate control and anticoagulation. Assessment and Plan Discussion w patient/family: The assessment and plan as outlined above was discussed with the patient and/or family members who expressed understanding and agreement. All questions were answered. Thank you for involving us in the care of your patient. Please call with any questions. History of Present Illness History of present illness: Ms. Schmitz is a 58 year old female All Systems Review: The remainder of the systems were reviewed and are negative Physical Examination Vital Signs, Last 4 Hours Temp Pulse Resp BP Pulse Ox 07/24/18 12:02 97.8 F 84 17 138/73 92 07/24/18 10:13 18 90 Results 07/24/18 03:32 07/24/18 03:32 Lab Results 07/24/18 07/24/18 03:32 03:32 WBC 12.7 H Hgb 16.3 H Hct 52.2 H Plt Count 305 Sodium 136 Potassium 5.0 D Chloride 103 Carbon Dioxide 29 BUN 12 Creatinine 0.66 Glucose 285 H Calcium 9.3
[2018-07-24] MEDS ORDERED: Diltiazem CD (24hr) 240 MG CAPSULE PO SCH (13:30)
[2018-07-24] MEDS: *HR* Rivaroxaban 10 MG TABLET PO SCH (18:01)
[2018-07-24] MEDS: Insulin DETEMIR 100 UNIT/ML X5UNITS SQ SCH (21:22)
[2018-07-24] MEDS ORDERED: Dextrose Gel 15 GM/37.5 ML TUBE PO PRN ×2 (21:25)
[2018-07-24] MEDS ORDERED: D5% in Water 1,000 ML IVC PRN (21:25)
[2018-07-24] MEDS ORDERED: *HR* Dextrose 50 % in Water (Syg) 50 ML SYRINGE IVP PRN (21:25)
[2018-07-25] MEDS: MethylPREDNISolone 40 MG/ML VIAL IVP SCH ×3 (00:20→12:05)
[2018-07-25 03:52] LABS: Basophils # 0.1 K/mcL (0.0-0.2); Basophils % 0.4 %; Hematocrit 46.9 % (35.3-44.9); Hemoglobin 15.3 g/dL (11.5-15.4); Immature Granulocytes % 1.1 % (0-4); Lymphocytes # 0.7 K/mcL (0.6-4.6); Mean Corpuscular HGB Conc 32.6 g/dL (31.6-35.5); Mean Corpuscular Hemoglobin 29.4 pg (28.0-33.3); Mean Platelet Volume 10.2 fL (9.4-12.4); Monocytes # 0.6 K/mcL (0.0-1.3); Monocytes % 4.8 %; Neutrophils # 10.4 K/mcL (1.6-8.9); Platelet Count 314 K/mcL (140-400); Red Blood Count 5.21 M/mcL (3.82-4.97); Red Cell Distribution Width 13.1 % (11.5-14.5); Segmented Neutrophils % 87.7 %
[2018-07-25] MEDS: Levalbuterol Neb 1.25 MG/3 ML IH SCH ×4 (04:05→22:43)
[2018-07-25 04:12] LABS: BUN/Creatinine Ratio 25 (6-26); Blood Urea Nitrogen 19 mg/dL (6-20); Calcium 9.4 mg/dL (8.6-10.3); Carbon Dioxide 31 mEq/L (23-29); Chloride 99 mEq/L (98-107); Glucose 366 mg/dL (70-105); Osmolality,Calculated 299 (280-300); Potassium 4.2 mEq/L (3.5-5.1); Sodium 136 mEq/L (136-145); eGFR For Non-African Americans > 60 (> 60)
[2018-07-25] MEDS: Insulin LISPRO 300 UNITS/3 ML VIAL SQ SCH ×3 (05:55→17:22)
[2018-07-25] MEDS: hydroCHLOROthiazide 25 MG TABLET PO SCH (09:06)
[2018-07-25] MEDS: Nicotine 14 MG PATCH.TD24 TD SCH (09:07)
--- NOTE | 2018-07-25 11:59 | Electrocardiograph Report ---
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
--- NOTE | 2018-07-25 12:06 | Electrocardiograph Report ---
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
--- NOTE | 2018-07-25 12:16 | Cardiology Progress Note ---
Date of Encounter: 07/25/18 Time of Encounter: 10:30 Assessment and Plan (1) PAF (paroxysmal atrial fibrillation) Current Visit: Yes Status: Acute Per cardiology: -Recently started on rhythmol, however patient stopped due to possible side effect -Admitted with a.fib RVR, now currently back in SR. Hr controlled. -Prior TTE with normal LV function, 65-70%, and stress test negative for ischemia. -On xarelto for anitcoagulation. -Discussed starting another anti-arrythmic versus rate control, pateint does not wish to start another anti-arrythmic. -Will increase cardizem to 300mg daily. -CArdiology will sign off. Will arrange close outpatient follow up with Dr.John Watkins, patient would like to discuss regarding potential a.fib ablation. Discussion w patient/family: The assessment and plan as outlined above was discussed with the patient who expressed understanding and agreement. All questions were answered. Thank you for involving us in the care of your patient. Please call with any questions. Discussed and reviewed with Dr.John Watkins. Subjective Principal diagnosis: PAF Interval history: Patient sitting on side of bed. No signs of acute distress noted. Objective Vital Signs, Last 4 Hours Temp Pulse Resp BP Pulse Ox 07/25/18 11:17 97.7 F 81 17 122/56 93 07/25/18 10:20 16 96 General: Conversant, No Apparent Distress HEENT: Atraumatic, Normocephaly, Mucus Membranes Moist Neck: No JVD, Normal carotid pulses Cardiac: Reg Rate and Rhythm, Normal S1 and S2, No Murmur Lungs: Other (Lung sounds diminished throughout. ) Neuro: Alert and responsive, No focal deficits noted Abdomen: Soft, Non-Tender Skin: No rashes noted on visualized skin Musculoskeletal: No Chest Wall Tenderness Extremities: No Clubbing, No Cyanosis, No Edema, Normal Pulses Results 07/25/18 03:35 07/25/18 03:35 Lab Results Active Medications Acetaminophen (Tylenol) 650 mg PO Q6HR PRN PRN Reason: Mild Pain/Fever Stop: 01/22/19 20:10 Last Admin: 07/24/18 21:58 Dose: 650 mg Atorvastatin Calcium (Lipitor) 20 mg PO HS DESHAUN Stop: 01/22/19 21:01 Last Admin: 07/24/18 21:22 Dose: 20 mg Dextrose/Water (Dextrose 50% (Syg)) 25 ml IVP AD PRN PRN Reason: Hypoglycemia Stop: 01/23/19 21:26 Diltiazem HCl (Cardizem Cd) 300 mg PO DAILY [facility] Stop: 01/25/19 09:01 Glucagon (Glucagen) 1 mg IM ONCE PRN PRN Reason: Hypoglycemia Stop: 01/22/19 20:18 Glucose (Gluctose) 30 gm PO ONCE PRN PRN Reason: Hypoglycemia Stop: 01/22/19 20:18 Glucose (Gluctose) 15 gm PO ONCE PRN PRN Reason: Hypoglycemia Stop: 01/23/19 21:26 Hydrochlorothiazide (Hydrochlorothiazide) 12.5 mg PO DAILY [facility]; Protocol Stop: 01/23/19 09:01 Last Admin: 07/25/18 09:06 Dose: 12.5 mg Dextrose (Dextrose 5%) 1,000 mls @ 100 mls/hr IVC .Q10H PRN PRN Reason: HYPOGLYCEMIA Stop: 01/23/19 21:26 Insulin Detemir (Levemir) 10 unit SQ [facility] Stop: 01/23/19 21:01 Last Admin: 07/24/18 21:22 Dose: 10 unit Insulin Human Lispro (Humalog) 8 units SQ ONCE ONE Stop: 07/25/18 21:31 Last Admin: 07/24/18 21:53 Dose: 8 units Insulin Human Lispro (Humalog) 0 units SQ TIDAC [facility]; Protocol Stop: 01/24/19 07:31 Last Admin: 07/25/18 12:05 Dose: 14 units Insulin Human Lispro (Humalog) 0 units SQ [facility]; Protocol Stop: 01/24/19 21:01 Levalbuterol HCl (Xopenex) 4 puff IH [id number] PRN PRN Reason: shortness of breath Stop: 01/23/19 00:01 Levalbuterol HCl (Xopenex) 1.25 mg IH [id number] [facility] Stop: 01/22/19 22:01 Last Admin: 07/25/18 10:17 Dose: 1.25 mg Losartan Potassium (Cozaar) 25 mg PO DAILY [facility]; Protocol Stop: 01/23/19 09:01 Last Admin: 07/24/18 09:21 Dose: 25 mg Methylprednisolone (Solu-Medrol) 40 mg IVP Q6HR [facility] Stop: 01/23/19 00:01 Last Admin: 07/25/18 12:05 Dose: 40 mg Naloxone HCl (Narcan) 0.4 mg IVP Q2MIN PRN PRN Reason: SEE COMMENTS Stop: 01/22/19 20:10 Nicotine (Nicoderm) 14 mg TD DAILY [facility] Stop: 01/23/19 09:01 Last Admin: 07/25/18 09:07 Dose: 14 mg Rivaroxaban (Xarelto) 20 mg PO 1700 [facility] Stop: 01/23/19 17:01 Last Admin: 07/24/18 18:01 Dose: 20 mg Laboratory Tests 07/24/18 07/25/18 07/25/18 17:46 03:35 03:35 WBC 11.8 H Creatinine 0.75 Troponin I < 0.03 - EKG Interpretation EKG results cardiology: other (Telemetry reviewed with average HR previous 12 hours noted to be 84, SR. PVCs and PACs noted.) Consult Discharge Plan - Plan Referrals: NONE,PCP [Primary Care Provider] -
--- NOTE | 2018-07-25 13:53 | Internal Med Progress Note ---
Hospitalist Progress Note - Encounter Date of Encounter: 07/25/18 Time of Encounter: 13:51 - Subjective Interval History: Pt states she is feeling better than she did yesterday. She denies chest pain. HR in SR at the moment. She does report coughing. She denies fever, chills, N/V or diarrhea. - Exam Vitals: Temp Pulse Resp BP Pulse Ox 97.7 F 81 17 122/56 93 07/25/18 11:17 07/25/18 11:17 07/25/18 11:17 07/25/18 11:17 07/25/18 11:17 Exam: General appearance: Present: A&O X 3 Exam: - Head Head exam: Present: atraumatic, normocephalic - Eye Eye exam: Present: PERRL, conjuntiva pink, sclera anicteric Pupils: Present: PERRL - Neck Neck exam general surgery: Present: supple, trachea midline. Absent: lymphadenopathy - Respiratory Respiratory exam: Present: expiratory wheezing R>L. Absent: accessory muscle use, rales, rhonchi, - Cardiovascular Cardiovascular exam: Present: RRR, +S1, +S2. Absent: diastolic murmur, gallop, rubs, systolic murmur - GI/Abdominal GI/Abdominal exam: Present: normal bowel sounds, soft, no peritoneal signs. Absent: distended, tenderness - Extremities Exam Extremities exam: Present: warm, radial pulses palpable and symmetrical. Absent: calf tenderness, cyanotic, pedal edema - Neurological Exam Neurological exam: Present: CN II-XII intact, oriented X3, no focal deficits. Absent: pronater drift, facial droop, speech deficit - Skin Skin exam: Present: dry, intact - Assessment and Plan (1) Acute exacerbation of chronic obstructive pulmonary disease (COPD) Current Visit: No Status: Acute Assessment and Plan: 30 PY smoker. Placed on Xopenex and IV solumedrol. Avoiding albuterol due to afib. Still wheezing on exam but improving. Will continue oxygen supplement. Will likely benefit from home oxygen evaluation at discharge. Pt upset at possibility of being discharged on home oxygen. States her insurance won't pay for it and she won't be able to work. (2) Atrial fibrillation with RVR Current Visit: Yes Status: Acute Assessment and Plan: Pt was discharged yesterday following management for Afib RVR. Rhythmol had been initiated at 150 mg PO Q8 hrs. She had received a total of 6 doses prior to DC and was in SR with HR in 70's prior to her discharge. Discussed with cardiology and will see pt in consult. Dr. Woo advised to hold off on rhythmol and cont on cardizem gtt. Pt likely has some mild interstitial edema on chest x ray. Given one time dose Lasix. Pt states she does not want to take rhythmol due to SOB. Cardiology to discuss with patient a different antiarrhythmic medication such as sotalol versus only rate control. Pt refusing to be started on antiarrhythmic. Cardiology DC'ed cardizem gtt and resume PO Cardizem but increased home dose from 240 mg PO to 300 mg PO daily. Continue with Xarelto for anticoagulation, CHADS-VASc 3. (3) Diabetes mellitus Current Visit: No Status: Chronic Assessment and Plan: Monitor glucose. Will start on Levemir and on sliding scale insulin. Pt states home Empagliflozin not in the original labeled bottle so advised her not to take it while she is in hospital as pharmacy cannot confirm the medication without original bottle. (4) Chest pain Current Visit: No Status: Acute Assessment and Plan: Resolved. Likely due to SOB and Afib. Troponin <0.03. Seen by cardiology. No further recommendations at this time. Chest x ray XR/XR chest 1V portable IMPRESSION: Mild diffuse interstitial prominence, new from prior exam. This may be on the basis of interstitial edema or atypical pneumonia. Echo Impressions: Normal LV chamber size, wall thickness, and systolic function. LVEF 65-70%. Mild left ventricular diastolic dysfunction. Normal right ventricular structure and function. Unable to estimate RVSP due to lack of TR jet. No significant valvular dysfunction. Left Ventricular Wall Motion: Rest Echo Findings All wall segments showed normal motion. (5) Acute and chronic respiratory failure Current Visit: No Status: Acute Assessment and Plan: Sat was 70% on RA at [place]. Continue on oxygen supplement for now. Pt was on 2L [place] now pt on 4L [place] sat 92%. DVT Prophylaxis: Xarelto - Summary of Assessment and Plan Summary of Assessment and Plan: Ms. Schmitz is a 58 year old female with history of Aifb RVR, currnet smoker 1- 2 PPD x 30 years, COPD, polycthemia, DM-II, A flutter with RVR. Pt states she went to an in service today and while she was there she developed progressive SOB. She denies 24/7 home oxygen and states she is only on it QHS. She denies cough or sputum. She states she went into the ED because her oxygen saturation was reportedly in 70's. Pt states she was found to be in Afib in the ED at [place]. She takes Xarelto and states she may have missed a dose or 2 in he past 3 weeks, otherwise she has been compliant. After much probing, pt finally admitted that she intentionally did not take her morning dose and she states "I'm not taking that medication!". She states she missed her afternoon dose. Pt is a transfer from [place] for further management for Afib RVR. She was started on cardizem gtt at [place]. - Time Spent with Patient Total time spent is greater than 50% in coordination of care (as documented) at patient's floor/unit and/or counseling patient: less than 15 minutes Plan of Care Discussed with: patient Internal Medicine: Result - Labs CBC & Chem 7: 07/25/18 03:35 07/25/18 03:35 Labs: Short CBC 07/25/18 Range/Units 03:35 WBC 11.8 H (4.3-11.1) K/mcL Hgb 15.3 (11.5-15.4) g/dL Hct 46.9 H (35.3-44.9) % Plt Count 314 (140-400) K/mcL Neutrophils # 10.4 H (1.6-8.9) K/mcL BMP 07/25/18 03:35 Sodium 136 Potassium 4.2 Chloride 99 Carbon Dioxide 31 H BUN 19 Creatinine 0.75 Glucose 366 H Calcium 9.4 Cardiac Enzymes 07/24/18 Range/Units 17:46 Troponin I < 0.03 (< 0.04) ng/mL Consult Discharge Plan - Plan Referrals: NONE,PCP [Primary Care Provider] - (3) Diabetes mellitus Qualifiers: Diabetes mellitus type: type 2 Diabetes mellitus nursing home insulin use: without nursing home use Diabetes mellitus complication status: without complication Qualified Code(s): E11.9 - Type 2 diabetes mellitus without complications (4) Chest pain Qualifiers: Chest pain type: precordial pain Qualified Code(s): R07.2 - Precordial pain
[2018-07-25] MEDS: Diltiazem CD (24hr) 300 MG CAPSULE PO SCH (14:57)
[2018-07-25] MEDS: predniSONE 20 MG TABLET PO SCH (17:22)
[2018-07-25] MEDS: *HR* Rivaroxaban 10 MG TABLET PO SCH (17:22)
[2018-07-25] MEDS ORDERED: Insulin LISPRO 300 UNITS/3 ML VIAL SQ SCH (21:00)
[2018-07-25] MEDS ORDERED: Insulin LISPRO 300 UNITS/3 ML VIAL SQ ONE (21:30)
[2018-07-25] MEDS: Insulin DETEMIR 100 UNIT/ML X5UNITS SQ SCH (21:50)
[2018-07-26] MEDS: Levalbuterol Neb 1.25 MG/3 ML IH SCH ×3 (04:54→15:37)
[2018-07-26 05:10] LABS: Basophils % 0.3 %; Hematocrit 47.2 % (35.3-44.9); Immature Granulocytes % 1.4 % (0-4); Lymphocytes # 0.8 K/mcL (0.6-4.6); Lymphocytes % 5.9 %; Mean Corpuscular HGB Conc 31.8 g/dL (31.6-35.5); Mean Corpuscular Hemoglobin 29.3 pg (28.0-33.3); Mean Corpuscular Volume 92.2 fL (83.0-100.0); Mean Platelet Volume 10.1 fL (9.4-12.4); Monocytes # 0.8 K/mcL (0.0-1.3); Monocytes % 6.6 %; Neutrophils # 10.9 K/mcL (1.6-8.9); Platelet Count 309 K/mcL (140-400); Red Blood Count 5.12 M/mcL (3.82-4.97); Red Cell Distribution Width 13.2 % (11.5-14.5); Segmented Neutrophils % 85.8 %
[2018-07-26 05:29] LABS: BUN/Creatinine Ratio 35 (6-26); Blood Urea Nitrogen 25 mg/dL (6-20); Calcium 8.9 mg/dL (8.6-10.3); Carbon Dioxide 32 mEq/L (23-29); Chloride 99 mEq/L (98-107); Glucose 402 mg/dL (70-105); Osmolality,Calculated 305 (280-300); Potassium 4.6 mEq/L (3.5-5.1); Sodium 137 mEq/L (136-145); eGFR For Non-African Americans > 60 (> 60)
[2018-07-26 07:15] VITALS: BP 143/71
[2018-07-26] MEDS: Diltiazem CD (24hr) 300 MG CAPSULE PO SCH (08:42)
[2018-07-26] MEDS: predniSONE 20 MG TABLET PO SCH (08:42)
[2018-07-26] MEDS: hydroCHLOROthiazide 25 MG TABLET PO SCH (08:42)
[2018-07-26] MEDS: Insulin LISPRO 300 UNITS/3 ML VIAL SQ SCH ×2 (08:43→12:06)
[2018-07-26] MEDS ORDERED: Diltiazem CD (24hr) 300 MG CAPSULE PO SCH (09:00)
[2018-07-26] MEDS ORDERED: predniSONE 20 MG TABLET PO SCH (09:00)
--- NOTE | 2018-07-26 13:01 | Discharge Summary ---
- NOTES TO OUTPATIENT PROVIDER Notes to Outpatient Provider: Patient with history of A. fib, COPD, polycythemia, hypertension was hospitalized here with chest pain related to atrial fibrillation/flutter with rapid ventricular response. She had been discharged on Rythmol and just the prior day but patient did not take it as she reported shortness of breath associated with it. She was also diagnosed with acute COPD exacerbation. She was placed on IV Cardizem drip and her heart rate improved. She was also treated with steroids and bronchodilators for her COPD. She was evaluated by cardiology and recommended to stop Rythmol and instead increase dose of Cardizem. Since then her heart rate has improved. She is stable to be discharged home today on steroid taper and azithromycin course. She will continue to take Cardizem 300 mg daily. 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 Schmitz is a 58 year old female Patient with history of A. fib, COPD, polycythemia, hypertension was hospitalized here with chest pain related to atrial fibrillation/flutter with rapid ventricular response. She had been discharged on Rythmol and just the prior day but patient did not take it as she reported shortness of breath associated with it. She was also diagnosed with acute COPD exacerbation. She was placed on IV Cardizem drip and her heart rate improved. She was also treated with steroids and bronchodilators for her COPD. She was evaluated by cardiology and recommended to stop Rythmol and instead increase dose of Cardizem. Since then her heart rate has improved. She is stable to be discharged home today on steroid taper and azithromycin course. She will continue to take Cardizem 300 mg daily. Discharge discussed with: patient, nurse - Time Spent with Patient Total time spent providing and/or coordinating discharge services: Greater than 30 minutes (40 min) - Discharge Medications Prescriptions: Levalbuterol [Xopenex INH] 4 puff IH [id number] PRN #1 inhaler NS PRN Reason: shortness of breath Azithromycin 500 mg PO DAILY 5 Days #10 tablet Diltiazem CD (24hr) [Cardizem CD] 300 mg PO DAILY #30 cap.er.24h predniSONE [PredniSONE] 40 mg PO DAILY 12 Days tablet Home Medications: Empagliflozin [Jardiance] 10 mg PO DAILY 06/05/18 [History] hydroCHLOROthiazide [Hydrochlorothiazide] 12.5 mg PO DAILY 06/05/18 [History] Atorvastatin Calcium [Lipitor] 20 mg PO HS 06/06/18 [History] Ergocalciferol (VITAMIN D2) [Vitamin D2] 50,000 unit PO REY 06/06/18 [History] Losartan Potassium [Cozaar] 25 mg PO DAILY 06/06/18 [History] Rivaroxaban [Xarelto] 20 mg PO 1700 30 Days #30 tablet 06/06/18 [Rx] Fluticasone/Vilanterol [Breo Ellipta 100-25 Mcg INH] 1 puff IH DAILY 07/23/18 [History] Azithromycin 500 mg PO DAILY 5 Days #10 tablet 07/26/18 [Rx] Diltiazem CD (24hr) [Cardizem CD] 300 mg PO DAILY #30 cap.er.24h 07/26/18 [Rx] Levalbuterol [Xopenex INH] 4 puff IH [id number] PRN #1 inhaler NS 07/26/18 [Rx] predniSONE [PredniSONE] 40 mg PO DAILY 12 Days tablet 07/26/18 [Rx] Allergies/Adverse Reactions: Allergy/AdvReac Type Severity Reaction Status Date / Time aspartame Allergy Hives Verified 07/23/18 14:44 Penicillins [PCN] Allergy Hives Verified 07/23/18 14:44 Date of admission: 07/23/18 17:32 Primary care physician: PCP NONE Consults: 07/23/18 21:45 Consult to Nurse Navigator [CONS] Routine Comment: 07/24/18 09:09 Consult to Cardiology [CONS] Routine Comment: Consulting Provider: Homero Acharya Reason for Consult: Afib rvr Call Completed: Yes Discharging clinician: Jaimie Simpson Anticipated date of discharge: 07/26/18 - Constitutional Vitals: Temp Pulse Resp BP Pulse Ox 97.5 F L 67 16 143/71 91 07/26/18 07:12 07/26/18 07:12 07/26/18 09:26 07/26/18 09:26 07/26/18 09:26 General appearance: Present: cooperative, A&O X 3, pleasant, obese, answers questions appropriately Exam: . - Respiratory Respiratory exam: Present: prolonged expiratory phase, wheezes. Absent: accessory muscle use, rales, rhonchi - Cardiovascular Cardiovascular exam: Present: +S1, +S2. Absent: diastolic murmur, gallop, rubs, systolic murmur - GI/Abdominal GI/Abdominal exam: Present: normal bowel sounds, soft, no peritoneal signs. Absent: distended, tenderness - Patient Status Disposition: Home, Self-Care Condition: Good Functional capacity at discharge: uses cane/walker Overall status at discharge: patient is progressing back to baseline - Discharge Instructions Instructions: Atrial Fibrillation (DC), Chronic Obstructive Pulmonary Disease (DC), Acute Respiratory Distress Syndrome (DC) Follow Up With: NONE,PCP [Primary Care Provider] - (in 1-2 weeks) Marcos Watkins MD [Partnered Physician] - (in 1-2 weeks) - Diet and Activity Activity: increase activity as tolerated, return to school once cleared by your PCP/specialist (07/31), wear oxygen at all times Diet: advance to your usual diet, diabetic diet
== END 2018-07-26 17:13 | disposition home or self-care (01) | DRG 308 ==
LOC: 2NENU 17:32
PROVIDERS: ADMIT Internal Medicine; ATTEND Internal Medicine

== ENCOUNTER 2018-08-16 06:07 | Observation (INO) ==
[2018-08-16] MEDS ORDERED: Naloxone 0.4 MG/ML INJ IVP PRN (08:55)
[2018-08-16] MEDS ORDERED: hydroCHLOROthiazide 25 MG TABLET PO SCH (09:00)
[2018-08-16] MEDS ORDERED: Fluticasone/Vilanterol [Breo Ellipta 100-25 Mcg Inh IH SCH (09:00)
--- NOTE | 2018-08-16 09:00 | Internal Med History&Physical ---
Date of Encounter: 08/16/18 Time of Encounter: 09:00 Internal Medicine - H&P: HPI Chief complaint: palpitations Admitted From: Home Plans for Post Hospital Care: Home History of present illness: Ms. Schmitz is a 58 year old female history including atrial fibrillation on xarelto, COPD, diabetes mellitus type II presented to [facility] with with palpitations. as per patient she took a shower last night at about 11 PM and developed palpitations. As her symptoms were similar to the symptoms that she is had previously when she was diagnosed with atrial fibrillation she decided to go to the emergency department for further evaluation as she had taken all her medications for the day. In addition to palpitations she felt shortness of breath and chest pressure. She describes her chest pressure as mild 2/10 pain that was non-radiating. she cannot reecall aggravating or alleviating factors. EMS was called and as per [facility] physician documentation EMS found her HR to be 154 and while at [facility] her HR was >100 - she was given IV cardizem along with PO cardizem ( total of 45 mg) with improvement/control of her HR. she was transferred to [place] for further management of her Atrial fibrillation. currently she reports that all her symptoms have resolevd, she reports that all her symptoms had resolved while at [facility] and is confused as to why she was brought to [place] for further evaluation. she is compliant with her medications. denies recent fever, chills, PND, orthopnea,cough, wheezing, prolonged immobilization, N/v/D, calf swelling or tenderness or leg edema. she was told that sotalol will be most likely added to her medication by the end of this month. she follows with Dr. watkins. last stress test was 2 years ago and she reports that there was no abnormalities with the test. she denies CP on ambulation however does experience SOb secondary to COPD and is now on Home O2 24 hrs a days which she is compliant with. Past Med Surg Social Fam HX - Past Medical History Medical history: asthma, atrial fibrillation, COPD, diabetes, hypertension, kidney stones, migraine, thyroid disease Additional medical history: hyperthyroid Psychiatric history: anxiety - Past Surgical History Surgical History: cholecystectomy, hysterectomy, other Additional surgical history: feet sx - Social History Smoking Status: Current every day smoker Smokeless Tobacco Status: No Alcohol use: none Drug use: none - Family History Sister Hx Family Cardiac Disorders: Yes Internal Medicine - H&P: Meds Empagliflozin [Jardiance] 10 mg PO DAILY 06/05/18 [History] hydroCHLOROthiazide [Hydrochlorothiazide] 12.5 mg PO DAILY 06/05/18 [History] Atorvastatin Calcium [Lipitor] 20 mg PO HS 06/06/18 [History] Ergocalciferol (VITAMIN D2) [Vitamin D2] 50,000 unit PO REY 06/06/18 [History] Losartan Potassium [Cozaar] 25 mg PO DAILY 06/06/18 [History] Rivaroxaban [Xarelto] 20 mg PO 1700 30 Days #30 tablet 06/06/18 [Rx] Fluticasone/Vilanterol [Breo Ellipta 100-25 Mcg INH] 1 puff IH DAILY 07/23/18 [History] Diltiazem CD (24hr) [Cardizem CD] 300 mg PO DAILY #30 cap.er.24h 07/26/18 [Rx] Levalbuterol [Xopenex INH] 4 puff IH [id number] PRN #1 inhaler NS 07/26/18 [Rx] Oxygen 1 each NS AD #1 each 07/26/18 [Rx] Ciprofloxacin HCl [Cipro] 500 mg PO BID #20 tablet 08/03/18 [Rx] Ondansetron ODT [Zofran ODT] 4 mg SL Q6HR PRN #8 tab.rapdis 08/03/18 [Rx] Phenazopyridine HCl [Pyridium] 200 mg PO TIDAC #6 tab 08/03/18 [Rx] Allergy/AdvReac Type Severity Reaction Status Date / Time aspartame Allergy Hives Verified 07/23/18 14:44 Penicillins [PCN] Allergy Hives Verified 07/23/18 14:44 All Systems PM: A 10-system review of systems was performed and is negative for pertinent findings except as documented above in the HPI. - Constitutional Vitals: VS reviewed from [place] HR 77, BP 127/73, RR 18 saturating 91% on 2 L NC nusing staff at bedside taking vitals currently. Exam: General: Patient is alert, oriented, no acute distress, lemon on a stick body habitus, speaks in full sentences Head: atraumatic, normocephalic, Eye: normal appearance, PERRL, no scleral icterus, no conjunctival injection ENT: mucous membranes moist, normal external ear exam Neck: normal inspection, trachea midline, full ROM, no carotid bruits Chest: normal inspection, symmetric chest rise Respiratory: Good respiratory effort. in crease in A/P diameter, Bilateral breath decreased sounds without wheezing, crackles, or rhonchi. Cardiovascular: Regular rate and rhythm. s1 and s2 No clicks, rubs, gallops, or murmors. Abdomen: Bowel sounds present normoactive x-4 quadrants. Abdomen is soft, nondistended. no Epigastric tenderness. No guarding or rebound. No organomegaly noted, obese musculoskeletal: Spontaneously moving all extremities. no edema, no calf tenderness Skin: warm, dry, intact. Neuro: Alert and oriented x4. Sensation light touch intact. Cranial nerves 2- 12 is intact. no focal deficit , Psych: Patient's affect is normal Internal Med - H&P Results - EKG Data -: EKG Interpreted by Myself EKG shows normal: sinus rhythm (incomplete RBBB, QTC 424) - EKG Data Prior EKG available for review: yes When compared to previous EKG: there is no significant change - Assessment and plan (1) Atrial fibrillation with RVR Current Visit: No Status: Acute Assessment and plan: was in Afib with RVR at [facility] now rate is controlled admitted with simialr symptoms in July 2018 recieved 50 mg of cardizem at [facility] which converted her to simnus rhythm - will give her 240 mg of cardizem today and continue with her home dose from AM troponin at [facility] negative will follow the next one now along with EKG follow am labs along with TSH Prior TTE with normal LV function, 65-70% in 2016- will obtain new TTE stress test negative for ischemia in 2016 Continue with Xarelto for anticoagulation, CHADS-VASc 3. cardiology consulted with Dr. Watkins as she was supposed to start sotalol on 09/01 04/20 TTE: Impressions: Normal LV chamber size, wall thickness, and systolic function. LVEF 65-70%. Mild left ventricular diastolic dysfunction. Normal right ventricular structure and function. Unable to estimate RVSP due to lack of TR jet. No significant valvular dysfunction. Stress test 2016- Impression: No significant ECG changes with regadenoson. Gated LVEF > 70%. Perfusion imaging was negative for ischemia or infarct. (2) COPD (chronic obstructive pulmonary disease) Current Visit: No Status: Chronic Assessment and plan: not in exacerbation continue home medications CXR at [facility]: IMPRESSION: Negative portable chest. Qualifiers: COPD type: unspecified COPD Qualified Code(s): J44.9 - Chronic obstructive pulmonary disease, unspecified (3) Diabetes mellitus Current Visit: No Status: Chronic Assessment and plan: will start her on sliding scale A1c in AM refusing diabetic diet - requesting regular diet Qualifiers: Diabetes mellitus type: type 2 Diabetes mellitus fdc insulin use: without fdc use Diabetes mellitus complication status: without complication Qualified Code(s): E11.9 - Type 2 diabetes mellitus without complications (4) Hypertension Current Visit: Yes Status: Acute Assessment and plan: continue home medications vitals as per protocol Qualifiers: Hypertension type: essential hypertension Qualified Code(s): I10 - Essential (primary) hypertension (5) DVT prophylaxis Current Visit: Yes Status: Acute Assessment and plan: on xarelto - Time Spent With Patient Total time spent is greater than 50% in coordination of care (as documented) at patient's floor/unit and/or counseling patient:
[2018-08-16] MEDS ORDERED: Diltiazem CD (24hr) 240 MG CAPSULE PO ONE ×2 (09:25→14:00)
[2018-08-16] MEDS ORDERED: *HR* Dextrose 50 % in Water (Syg) 50 ML SYRINGE IVP PRN (09:28)
[2018-08-16] MEDS ORDERED: Dextrose Gel 15 GM/37.5 ML TUBE PO PRN ×2 (09:28)
[2018-08-16] MEDS ORDERED: D5% in Water 1,000 ML IVC PRN (09:28)
[2018-08-16 09:45] LABS: Basophils # 0.1 K/mcL (0.0-0.2); Basophils % 0.6 %; Eosinophils # 0.2 K/mcL (0.0-0.6); Eosinophils % 2.6 %; Hematocrit 47.4 % (35.3-44.9); Hemoglobin 15.4 g/dL (11.5-15.4); Immature Granulocytes % 0.6 % (0-4); Lymphocytes # 1.7 K/mcL (0.6-4.6); Lymphocytes % 22.5 %; Mean Corpuscular HGB Conc 32.5 g/dL (31.6-35.5); Mean Corpuscular Hemoglobin 29.5 pg (28.0-33.3); Mean Corpuscular Volume 90.8 fL (83.0-100.0); Mean Platelet Volume 9.8 fL (9.4-12.4); Monocytes # 0.8 K/mcL (0.0-1.3); Monocytes % 10.3 %; Neutrophils # 4.9 K/mcL (1.6-8.9); Platelet Count 274 K/mcL (140-400); Red Blood Count 5.22 M/mcL (3.82-4.97); Red Cell Distribution Width 13.7 % (11.5-14.5); Segmented Neutrophils % 63.4 %
[2018-08-16 10:02] VITALS: BP 121/65
[2018-08-16 10:04] LABS: Magnesium 1.9 mg/dL (1.6-2.6)
[2018-08-16 10:06] LABS: BUN/Creatinine Ratio 21 (6-26); Blood Urea Nitrogen 11 mg/dL (6-20); Calcium 8.6 mg/dL (8.6-10.3); Carbon Dioxide 33 mEq/L (23-29); Chloride 100 mEq/L (98-107); Glucose 160 mg/dL (70-105); Osmolality,Calculated 293 (280-300); Potassium 3.6 mEq/L (3.5-5.1); Sodium 140 mEq/L (136-145); Troponin I < 0.03 ng/mL (< 0.04); eGFR For Non-African Americans > 60 (> 60)
[2018-08-16] MEDS ORDERED: Insulin LISPRO 300 UNITS/3 ML VIAL SQ SCH (12:00)
--- NOTE | 2018-08-16 13:03 | Cardiology Consult Note ---
<Erick Arcos R - Last Filed: 08/16/18 13:10> Date of Encounter: 08/16/18 Time of Encounter: 13:02 Assessment and Plan (1) PAF (paroxysmal atrial fibrillation) Current Visit: Yes Status: Acute Known hx of PAF. Presented with palpitations, chest pressure and dyspnea, found to be A-Flutter RVR. Given IV Cardizem and has since converted to SR. Troponin negative x 2. Has tried Rythmol in the past, stopped due to side effects. Seen outpt by Dr. Marcos Watkins last month with plans to directly admit and start Sotalol 80mg BID. Since pt has been admitted, recommend starting Sotalol 80mg BID this admission. Pt initially hesitant, but agrees. Home med includes Cardizem CD 300mg daily. Continue for now. K 3.7, Mag 1.9. TTE 2015 EF preserved and nuclear stress test 2016 negative for ischemia or infarct. Anticoagulated on Xarelto with no missed doses in the past 30 days. Start Sotalol 80mg BID this afternoon. Will need monitored inpt for 5 doses. Daily ECGs to monitor QTc. Continuous telemetry. Baseline ECG 08/16/18 0946 SR, rate 77, QT/QTc 398/429ms. Discussion w patient/family: The assessment and plan as outlined above was discussed with the patient and/or family members who expressed understanding and agreement. All questions were answered. Thank you for involving us in the care of your patient. Please call with any questions. I will discuss and review with Dr. Woody and make changes as necessary. History of Present Illness Consult date: 08/16/18 Consult reason: PAF Chief complaint: palpitations History of present illness: Ms. Schmitz is a 58 year old female with PMH of PAF on xarelto, COPD, diabetes mellitus type II, who presents with a chief complaint of palpitations. She took a shower last night at ~11 PM and developed palpitations associated with dyspnea and chest pressure--her typical symptoms when in A-Fib. Was found to be in A- Flutter RVR, given IV Cardizem and has since converted back to SR. Recently stopped Rythmol due to worsening dyspnea. Saw Dr. Marcos Watkins outpt with plans to be directly admitted to start Sotalol 80mg BID in the upcoming weeks. Cardiology consulted for further recs. Prior CV testing: TTE 04/05/16: Normal LV chamber size, wall thickness, and systolic function. LVEF 65-70%. Mild left ventricular diastolic dysfunction. Normal right ventricular structure and function. Unable to estimate RVSP due to lack of TR jet. No significant valvular dysfunction. Stress test 03/25/16: Perfusion imaging negative for ischemia or infarct. Past Med Surg Social Fam HX - Past Medical History Medical history: asthma, atrial fibrillation, COPD, diabetes, hypertension, kidney stones, migraine, thyroid disease Additional medical history: hyperthyroid Psychiatric history: anxiety - Past Surgical History Surgical History: cholecystectomy, hysterectomy, other Additional surgical history: feet sx - Social History Smoking Status: Current every day smoker Smokeless Tobacco Status: No Alcohol use: none Drug use: none - Family History Sister Hx Family Cardiac Disorders: Yes Medications and Allergies Empagliflozin [Jardiance] 10 mg PO DAILY 06/05/18 [History] hydroCHLOROthiazide [Hydrochlorothiazide] 12.5 mg PO DAILY 06/05/18 [History] Atorvastatin Calcium [Lipitor] 20 mg PO HS 06/06/18 [History] Ergocalciferol (VITAMIN D2) [Vitamin D2] 50,000 unit PO REY 06/06/18 [History] Losartan Potassium [Cozaar] 25 mg PO DAILY 06/06/18 [History] Rivaroxaban [Xarelto] 20 mg PO 1700 30 Days #30 tablet 06/06/18 [Rx] Fluticasone/Vilanterol [Breo Ellipta 100-25 Mcg INH] 1 puff IH DAILY 07/23/18 [History] Diltiazem CD (24hr) [Cardizem CD] 300 mg PO DAILY #30 cap.er.24h 07/26/18 [Rx] Levalbuterol [Xopenex INH] 4 puff IH [id number] PRN #1 inhaler NS 07/26/18 [Rx] Oxygen 1 each NS AD #1 each 07/26/18 [Rx] Ciprofloxacin HCl [Cipro] 500 mg PO BID #20 tablet 08/03/18 [Rx] Ondansetron ODT [Zofran ODT] 4 mg SL Q6HR PRN #8 tab.rapdis 08/03/18 [Rx] Phenazopyridine HCl [Pyridium] 200 mg PO TIDAC #6 tab 10/29/18 [Rx] Allergy/AdvReac Type Severity Reaction Status Date / Time aspartame Allergy Hives Verified 07/23/18 14:44 Penicillins [PCN] Allergy Hives Verified 07/23/18 14:44 All Systems Review: The remainder of the systems were reviewed and are negative - Cardiovascular Cardiovascular: as per HPI, chest pain at rest, dyspnea at rest, dyspnea on exertion, irregular heart rhythm, palpitations - Respiratory Respiratory: dyspnea Physical Examination Vital Signs, Last 4 Hours Temp Pulse Resp BP Pulse Ox 08/16/18 10:01 98.0 F 82 17 121/65 89 Vital Signs Temp Pulse Resp BP Pulse Ox 08/16/18 10:01 98.0 F 82 17 121/65 89 Intake and Output 08/15/18 08/16/18 08/16/18 23:59 07:59 15:59 Intake Total 0 / 0 Output Total 0 / 0 Balance 0 / 0 Intake: Oral 0 / 0 Output: Urine 0 / 0 Other: Weight 83.461 kg Blood Glucose* 188 Patient Weight 08/16/18 23:59 Weight 83.461 kg General: Conversant, No Apparent Distress HEENT: Atraumatic, Normocephaly, Mucus Membranes Moist Neck: No JVD, Normal carotid pulses Cardiac: Reg Rate and Rhythm, Normal S1 and S2, No Murmur Lungs: Other (diminished) Neuro: Alert and responsive, No focal deficits noted Abdomen: Soft, Non-Tender Skin: No rashes noted on visualized skin Musculoskeletal: No Chest Wall Tenderness Extremities: No Clubbing, No Cyanosis, No Edema, Normal Pulses Results 08/16/18 09:32 08/16/18 09:32 Lab Results 08/16/18 08/16/18 08/16/18 09:32 09:32 09:32 WBC 7.7 Hgb 15.4 Hct 47.4 H Plt Count 274 Sodium 140 Potassium 3.6 Chloride 100 Carbon Dioxide 33 H BUN 11 Creatinine 0.52 L Glucose 160 H Calcium 8.6 Magnesium 1.9 Troponin I < 0.03 Short CBC 08/16/18 Range/Units 09:32 WBC 7.7 (4.3-11.1) K/mcL Hgb 15.4 (11.5-15.4) g/dL Hct 47.4 H (35.3-44.9) % Plt Count 274 (140-400) K/mcL Neutrophils # 4.9 (1.6-8.9) K/mcL BMP 08/16/18 Range/Units 09:32 Sodium 140 (136-145) mEq/L Potassium 3.6 (3.5-5.1) mEq/L Chloride 100 (98-107) mEq/L Carbon Dioxide 33 H (23-29) mEq/L BUN 11 (6-20) mg/dL Creatinine 0.52 L (0.60-1.20) mg/dL Glucose 160 H (70-105) mg/dL Calcium 8.6 (8.6-10.3) mg/dL Cardiac Enzymes 08/16/18 Range/Units 09:32 Troponin I < 0.03 (< 0.04) ng/mL Active Medications Albuterol Sulfate (Albuterol Inhaler) 4 puff IH [id number] PRN PRN Reason: shortness of breath Stop: 02/15/19 08:58 Atorvastatin Calcium (Lipitor) 20 mg PO HS DESHAUN Stop: 02/15/19 21:01 Dextrose/Water (Dextrose 50% (Syg)) 25 ml IVP AD PRN PRN Reason: Hypoglycemia Stop: 02/15/19 09:29 Diltiazem HCl (Cardizem Cd) 300 mg PO DAILY [facility] Stop: 02/16/19 09:01 Diltiazem HCl (Cardizem Cd) 240 mg PO ONCE ONE Stop: 08/16/18 14:01 Ergocalciferol (Drisdol (50,000 Unit)) 50,000 unit PO REY DESHAUN Stop: 02/15/19 09:01 Last Admin: 08/16/18 10:18 Dose: Not Given Glucagon (Glucagen) 1 mg IM ONCE PRN PRN Reason: Hypoglycemia Stop: 02/15/19 09:29 Glucose (Gluctose) 15 gm PO ONCE PRN PRN Reason: Hypoglycemia Stop: 02/15/19 09:29 Glucose (Gluctose) 30 gm PO ONCE PRN PRN Reason: Hypoglycemia Stop: 02/15/19 09:29 Hydrochlorothiazide (Hydrochlorothiazide) 12.5 mg PO DAILY DESHAUN; Protocol Stop: 02/15/19 09:01 Last Admin: 08/16/18 10:18 Dose: 12.5 mg Dextrose (Dextrose 5%) 1,000 mls @ 100 mls/hr IVC .Q10H PRN PRN Reason: HYPOGLYCEMIA Stop: 02/15/19 09:29 Insulin Human Lispro (Humalog) 0 units SQ Q6HR [facility]; Protocol Stop: 02/15/19 12:01 Last Admin: 08/16/18 11:56 Dose: 2 unit Losartan Potassium (Cozaar) 25 mg PO DAILY DESHAUN Stop: 02/15/19 09:01 Last Admin: 08/16/18 10:18 Dose: 25 mg Naloxone HCl (Narcan) 0.4 mg IVP Q2MIN PRN PRN Reason: SEE COMMENTS Stop: 02/15/19 08:56 Pharmacy Profile Note (Patient Taking Own Medication) 1 each IH DAILY [facility] Stop: 02/15/19 09:01 Last Admin: 08/16/18 10:17 Dose: Not Given Phenazopyridine HCl (Pyridium) 200 mg PO TIDAC [facility] Stop: 02/15/19 11:31 Last Admin: 08/16/18 11:17 Dose: Not Given Rivaroxaban (Xarelto) 20 mg PO 1700 [facility] Stop: 02/15/19 17:01 - Imaging and Cardiology Stress Test: report reviewed Echo: report reviewed - EKG Interpretation EKG results cardiology: personally reviewed (A-Flutter RVR), other (12 hr tele AVG HR 78, SR) Consult Discharge Plan - Plan Referrals: Candi Tyler, RN LABOR DELIVERY [Primary Care Provider] - <Magda Woody - Last Filed: 08/16/18 14:11> Date of Encounter: 08/16/18 - Attending Attestation I examined this patient and my medical decision-making was reviewed with the RN LABOR DELIVERY. I agree with the documented findings, disposition and treatment plan as described. Ms. Schmitz has a known history of PAF. She presented in atrial flutter RVR and was given cardizem IV. She has since converted to NSR. Her troponins have been negative. She feels back to her usual state of health. Per outpatient documentation, the plan was for her to be admitted for sotalol initiation. D iscussed this plan with the patient and initially offered initiating sotalol now. However, she admitted to missing doses of xarelto. She is not sure how many doses but is fairly confident she's missed doses in the last 30 days. She was given the option of YRN to rule out thrombus formation before initiating antiarrhythmic drug therapy. However she declines. She is back to her usual state of health and in NSR. She would like to go home and follow up as outpatient. Strongly encouraged medication compliance. We will sign off. Please call with questions. Assessment and Plan Discussion w patient/family: The assessment and plan as outlined above was discussed with the patient and/or family members who expressed understanding and agreement. All questions were answered. Thank you for involving us in the care of your patient. Please call with any questions. History of Present Illness History of present illness: Ms. Schmitz is a 58 year old female All Systems Review: The remainder of the systems were reviewed and are negative Results 08/16/18 09:32 08/16/18 09:32 Lab Results 08/16/18 08/16/18 08/16/18 09:32 09:32 09:32 WBC 7.7 Hgb 15.4 Hct 47.4 H Plt Count 274 Sodium 140 Potassium 3.6 Chloride 100 Carbon Dioxide 33 H BUN 11 Creatinine 0.52 L Glucose 160 H Calcium 8.6 Magnesium 1.9 Troponin I < 0.03
--- NOTE | 2018-08-16 14:39 | Discharge Summary ---
- NOTES TO OUTPATIENT PROVIDER Notes to Outpatient Provider: follow up with cardiology Orders not resulted at time of discharge: Pending orders 08/16/18 08:55 Urinalysis reflex Microscopic [URIN] Stat 08/16/18 09:00 Drug Screen, Urine [UCHEM] Stat 08/16/18 09:05 ECG 12 lead ECG [ECG] Stat 08/16/18 09:26 EV echocardiogram Routine 08/17/18 04:00 Basic Metabolic Panel AM 0400 Complete Blood Count [HEME] AM 0400 Hgb A1C AM 0400 Thyroid Stimulating Hormone AM 0400 08/17/18 06:00 EKG [ECG 12 lead ECG] [ECG] AM 0600 08/18/18 06:00 EKG [ECG 12 lead ECG] [ECG] AM 0600 08/19/18 06:00 EKG [ECG 12 lead ECG] [ECG] AM 0600 Date of Encounter: 08/16/18 Time of Encounter: 14:37 - Discharge Diagnosis (1) Atrial fibrillation with RVR Priority: Primary Status: Acute (2) COPD (chronic obstructive pulmonary disease) Priority: Secondary Status: Chronic Qualifiers: COPD type: unspecified COPD Qualified Code(s): J44.9 - Chronic obstructive pulmonary disease, unspecified (3) Diabetes mellitus Priority: Secondary Status: Chronic Qualifiers: Diabetes mellitus type: type 2 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 Schmitz is a 58 year old female history including atrial fibrillation on xarelto, COPD, diabetes mellitus type II presented to [facility] with with palpitations. as per patient she took a shower last night at about 11 PM and developed palpitations. As her symptoms were similar to the symptoms that she is had previously when she was diagnosed with atrial fibrillation she decided to go to the emergency department for further evaluation as she had taken all her medications for the day. In addition to palpitations she felt shortness of breath and chest pressure. She describes her chest pressure as mild 2/10 pain that was non-radiating. she cannot reecall aggravating or alleviating factors. EMS was called and as per [facility] physician documentation EMS found her HR to be 154 and while at [facility] her HR was >100 - she was given IV cardizem along with PO cardizem ( total of 45 mg) with improvement/control of her HR. she was transferred to [facility] for further management of her Atrial fibrillation. currently she reports that all her symptoms have resolevd, she reports that all her symptoms had resolved while at [facility] and is confused as to why she was brought to [facility] for further evaluation. she is compliant with her medications. denies recent fever, chills, PND, orthopnea,cough, wheezing, prolonged immobilization, N/v/D, calf swelling or tenderness or leg edema. she was told that sotalol will be most likely added to her medication by the end of this month. she follows with Dr. watkins. last stress test was 2 years ago and she reports that there was no abnormalities with the test. she denies CP on ambulation however does experience SOb secondary to COPD and is now on Home O2 24 hrs a days which she is compliant with. cardiology was consulted and originally the patient was in agreement to have sotalol started on this admission however later she admitted that she is missed doses of her Xarelto so I was contacted by the civil engineering design draftsperson Dr. fang who reported that the patient is stable for discharge as she is in sinus rhythm. She and I discussed the patient and since she is unsure if she is taken at least 30 days of her Xarelto dosage continuously she is at risk for having a stroke if started on sotalol. She was offered to have a YRN performed in the morning however patient declined and would like to be discharged. Cardiology cleared the patient for discharge. She was counseled extensively on importance of being compliant to her oxygen along with medications. To follow-up with Dr. Watkins on 09/01/18. Discharge discussed with: patient, nurse, senior health consultant - Time Spent with Patient Total time spent providing and/or coordinating discharge services: Less than 30 minutes - Discharge Medications Home Medications: Empagliflozin [Jardiance] 10 mg PO DAILY 06/05/18 [History] hydroCHLOROthiazide [Hydrochlorothiazide] 12.5 mg PO DAILY 06/05/18 [History] Atorvastatin Calcium [Lipitor] 20 mg PO HS 06/06/18 [History] Ergocalciferol (VITAMIN D2) [Vitamin D2] 50,000 unit PO REY 06/06/18 [History] Losartan Potassium [Cozaar] 25 mg PO DAILY 06/06/18 [History] Rivaroxaban [Xarelto] 20 mg PO 1700 30 Days #30 tablet 06/06/18 [Rx] Fluticasone/Vilanterol [Breo Ellipta 100-25 Mcg INH] 1 puff IH DAILY 07/23/18 [History] Diltiazem CD (24hr) [Cardizem CD] 300 mg PO DAILY #30 cap.er.24h 07/26/18 [Rx] Levalbuterol [Xopenex INH] 4 puff IH [id number] PRN #1 inhaler NS 07/26/18 [Rx] Oxygen 1 each NS AD #1 each 07/26/18 [Rx] Phenazopyridine HCl [Pyridium] 200 mg PO TIDAC #6 tab 08/03/18 [Rx] Allergies/Adverse Reactions: Allergy/AdvReac Type Severity Reaction Status Date / Time aspartame Allergy Hives Verified 07/23/18 14:44 Penicillins [PCN] Allergy Hives Verified 07/23/18 14:44 Date of admission: 08/16/18 08:52 Primary care physician: Candi Tyler CNP Consults: 08/16/18 09:26 Consult to Cardiology [CONS] Routine Comment: Consulting Provider: Marcos Watkins Reason for Consult: recurrent afib with RVR on cardizem Call Completed: No - Constitutional Vitals: Temp Pulse Resp BP Pulse Ox 98.0 F 82 17 121/65 89 08/16/18 10:01 08/16/18 10:01 08/16/18 10:01 08/16/18 10:01 08/16/18 10:01 Exam: General: Patient is alert, oriented, no acute distress, lemon on a stick body habitus, speaks in full sentences Head: atraumatic, normocephalic, Eye: normal appearance, PERRL, no scleral icterus, no conjunctival injection ENT: mucous membranes moist, normal external ear exam Neck: normal inspection, trachea midline, full ROM, no carotid bruits Chest: normal inspection, symmetric chest rise Respiratory: Good respiratory effort. in crease in A/P diameter, Bilateral breath decreased sounds without wheezing, crackles, or rhonchi. Cardiovascular: Regular rate and rhythm. s1 and s2 No clicks, rubs, gallops, or murmors. Abdomen: Bowel sounds present normoactive x-4 quadrants. Abdomen is soft, nondistended. no Epigastric tenderness. No guarding or rebound. No organomegaly noted, obese musculoskeletal: Spontaneously moving all extremities. no edema, no calf tenderness Skin: warm, dry, intact. Neuro: Alert and oriented x4. Sensation light touch intact. Cranial nerves 2- 12 is intact. no focal deficit , Psych: Patient's affect is normal - Patient Status Disposition: Home, Self-Care Condition: Fair - Discharge Instructions Follow Up With: Candi Tyler, [employer]ER [Primary Care Provider] - - Diet and Activity Activity: increase activity as tolerated Diet: advance to your usual diet
[2018-08-16] MEDS ORDERED: *HR* Rivaroxaban 10 MG TABLET PO SCH (17:00)
[2018-08-17] MEDS ORDERED: Diltiazem CD (24hr) 300 MG CAPSULE PO SCH (09:00)
--- NOTE | 2018-08-18 19:54 | Electrocardiograph Report ---
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
== END 2018-08-16 16:10 | disposition home or self-care (01) ==
LOC: 2ANU
PROVIDERS: ADMIT Internal Medicine; ATTEND Internal Medicine

== ENCOUNTER 2018-09-01 09:54 | Inpatient (IN) ==
[2018-09-01] MEDS ORDERED: Naloxone 0.4 MG/ML INJ IVP PRN (10:14)
--- NOTE | 2018-09-01 10:44 | History & Physical Report ---
Date of Encounter: 09/01/18 Time of Encounter: 10:39 24 Hour HP Update - Instructions Instructions: If the History and Physical is less than 30 days old and was completed prior to A.M. admission and or procedure and has NOT been updated on calendar day of procedure please complete this update prior to performing procedure. - Update Patient reports changes in Medical Condition: Yes Changes in examination, assessment, or condition: Yes Changes in Medication: No Preop tests/diagnostics Reviewed: Yes - Attending Attestation Ms. Schmitz presents for sotalol therapy admission. She was seen 08/05/18 in the cardiology office with c/o recurrent afib and increased SOB. She was previously on rhythmol and discontinued due to side effects. It was decided that she would start sotalol 80 mg q12 HR. She reports ER visit for atrial fibrillation with RVR 2 weeks ago. She converted to NSR and was sent home. She c/o intermittent chest pain for the past two weeks that occurs with physical exertion and is relieved with rest. States that yesterday her chest pain was severe. She states she may have over exerted herself. Her chest pain is accompanied by BURRIS and radiated to her neck and left shoulder. She is currently pain free. Denies history of CAD. She did have stress test in 2016 that was negative. Past medical history also significant for HTN, HLD, DM, COPD on home O2, and tobacco use (2pk/day). States siblings with NM in their 50's. EKG shows SR with no acute ST/T wave changes, QT/QTc 385/447, QRS 93. I reviewed with Dr. Marcos Watkins. We will order echocardiogram and stress test while in-patient. Okay to start sotalol therapy. She is on xarelto with no missed doses in the past 30 days.
[2018-09-01 11:25] LABS: Basophils # 0.1 K/mcL (0.0-0.2); Basophils % 0.9 %; Eosinophils # 0.1 K/mcL (0.0-0.6); Eosinophils % 0.9 %; Hematocrit 47.9 % (35.3-44.9); Hemoglobin 15.9 g/dL (11.5-15.4); Immature Granulocytes % 0.7 % (0-4); Lymphocytes # 1.8 K/mcL (0.6-4.6); Lymphocytes % 18.6 %; Mean Corpuscular HGB Conc 33.2 g/dL (31.6-35.5); Mean Corpuscular Hemoglobin 29.7 pg (28.0-33.3); Mean Corpuscular Volume 89.5 fL (83.0-100.0); Mean Platelet Volume 10.3 fL (9.4-12.4); Monocytes % 9.8 %; Neutrophils # 6.8 K/mcL (1.6-8.9); Platelet Count 253 K/mcL (140-400); Red Blood Count 5.35 M/mcL (3.82-4.97); Red Cell Distribution Width 14.5 % (11.5-14.5); Segmented Neutrophils % 69.1 %
[2018-09-01 11:35] LABS: INR 1.3; Prothrombin Time 14.8 Seconds (9.4-12.1)
[2018-09-01 11:41] LABS: BUN/Creatinine Ratio 16 (6-26); Blood Urea Nitrogen 9 mg/dL (6-20); Calcium 9.3 mg/dL (8.6-10.3); Carbon Dioxide 31 mEq/L (23-29); Chloride 101 mEq/L (98-107); Glucose 216 mg/dL (70-105); Osmolality,Calculated 291 (280-300); Potassium 3.8 mEq/L (3.5-5.1); Sodium 138 mEq/L (136-145); eGFR For Non-African Americans > 60 (> 60)
[2018-09-01] MEDS ORDERED: Perflutren Lipid Microsphere 1.3 ML in 0.9 % Sodium Chloride 8.7 ML IVP ONE (15:45)
[2018-09-01] MEDS: *HR* Rivaroxaban 10 MG TABLET PO SCH (17:35)
[2018-09-02] MEDS ORDERED: Regadenoson 0.4 MG/5 ML SYRINGE IVP ONE (05:34)
[2018-09-02] MEDS: Diltiazem CD (24hr) 300 MG CAPSULE PO SCH (08:58)
[2018-09-02] MEDS: Empagliflozin [Jardiance] 10 MG PO SCH (08:59)
[2018-09-02] MEDS: hydroCHLOROthiazide 25 MG TABLET PO SCH (08:59)
[2018-09-02] MEDS: Fluticasone/Vilanterol [Breo Ellipta 100-25 Mcg Inh IH SCH (08:59)
--- NOTE | 2018-09-02 09:25 | Electrophysiology ProgressNote ---
Date of Encounter: 09/02/18 Time of Encounter: 09:20 Assessment and Plan (1) PAF (paroxysmal atrial fibrillation) Current Visit: No Status: Acute Ms. Schmitz presents for sotalol initiation recommended by Dr. Marcos Watkins for PAF. She reported continued SOB despite treatment for her COPD and felt her afib was contributing. She has H/o COPD and wears home O2. Previously she was on rhythmol and discontinued due to side effects. Sotalol 80 mg q12 hours started 09/01/18 and she is s/p 2 doses. EKG at baseline showed SR, QT/QTc 385/427, QRS 93. EKG today shows SR, QT/QTc 417/439, QRS 95. She did c/o increased SOB last night secondary to not using her inhaler as prescribed. She is now feeling better after being started on inhaler here. Does not appear to be side effect of the medication. We will continue to monitor. 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 No missed doses in the last 30 days. TTE pending. (2) Chest pain Current Visit: No Status: Acute Pt c/o chest pain one day before presentation for sotalol therapy. Stress test and TTE ordred. EKG showed no acute ST changes. Troponin was negative. No prior history of CAD. Further recommendation pending testing. Qualifiers: Chest pain type: unspecified Qualified Code(s): R07.9 - Chest pain, unspecified (3) COPD (chronic obstructive pulmonary disease) Current Visit: No Status: Chronic H/o COPD on home o2. Follows with pulmonology. We will continue inhalers. Unfortunately she lost her inhaler and it is not carried in our pharmacy. We will continue to monitor. SOB last night reported. States SOB improved this morning. We will check CXR. TTE pending. No fluid overload on exam. Qualifiers: COPD type: unspecified COPD Qualified Code(s): J44.9 - Chronic obstructive pulmonary disease, unspecified Discussion w patient/family: The assessment and plan as outlined above was discussed with the patient and/or family members who expressed understanding and agreement. All questions were answered. Thank you for involving us in the care of your patient. Please call with any questions. Subjective Principal diagnosis: PAF Interval history: Ms. Schmitz was seen in the stress lab today. She remains in NSR. Denies chest pain overnight. C/o SOB last night. States that she did not take her inhaler prior to admission due to losing it. [facility] also does not carry her inhaler and she was placed on substitute. She recently took a round of steroid and antibiotic prescribed by her center director with some relief of her SOB. This morning she is feeling better. She was started on breo lipta here as an alternative. Objective Vital Signs, Last 4 Hours Pulse Resp Pulse Ox 09/02/18 09:00 73 09/02/18 05:45 16 91 General: Conversant, No Apparent Distress HEENT: Atraumatic, Normocephaly, Mucus Membranes Moist Neck: No JVD, Normal carotid pulses Cardiac: Reg Rate and Rhythm, Normal S1 and S2, No Murmur Lungs: Other (respirations easy. Lung sounds diminished. Poor air movement. No wheezes or rhonci. ) Neuro: Alert and responsive, No focal deficits noted Abdomen: Soft, Non-Tender Skin: No rashes noted on visualized skin Musculoskeletal: No Chest Wall Tenderness Extremities: No Clubbing, No Cyanosis, No Edema, Normal Pulses Results 09/01/18 11:06 09/01/18 11:06 Lab Results 09/01/18 09/01/18 09/01/18 11:06 11:06 11:06 WBC 9.9 Hgb 15.9 H Hct 47.9 H Plt Count 253 INR 1.3 Sodium Potassium Chloride Carbon Dioxide BUN Creatinine Glucose Calcium Troponin I < 0.03 09/01/18 11:06 WBC Hgb Hct Plt Count INR Sodium 138 Potassium 3.8 Chloride 101 Carbon Dioxide 31 H BUN 9 Creatinine 0.55 L Glucose 216 H Calcium 9.3 Troponin I - Imaging and Cardiology Stress Test: pending Echo: pending - EKG Interpretation EKG results cardiology: personally reviewed - VTE Reasons for not Prescribing Prophylaxis: Not indicated-Anticoagulated or INR therapeutic Consult Discharge Plan - Plan Referrals: Candi Tyler CNP [Advanced Practice Nurse] - 09/10/18 12:30 pm () Marcos Watkins MD [Partnered Physician] - (office to call patient at home with follow up appointment)
[2018-09-02] MEDS ORDERED: D5% in Water 1,000 ML IVC PRN (10:18)
[2018-09-02] MEDS ORDERED: Dextrose Gel 15 GM/37.5 ML TUBE PO PRN ×2 (10:18)
[2018-09-02] MEDS ORDERED: *HR* Dextrose 50 % in Water (Syg) 50 ML SYRINGE IVP PRN (10:18)
[2018-09-02 11:02] LABS: Estimated Average Glucose 240 mg/dl
[2018-09-02] MEDS: Insulin LISPRO 300 UNITS/3 ML VIAL SQ SCH ×2 (11:37→16:55)
--- NOTE | 2018-09-02 14:10 | Electrocardiograph Report ---
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
[2018-09-02] MEDS: *HR* Rivaroxaban 10 MG TABLET PO SCH (16:55)
[2018-09-03] MEDS ORDERED: Acetaminophen 325 MG TABLET PO PRN (05:25)
--- NOTE | 2018-09-03 07:54 | Discharge Summary ---
Orders not resulted at time of discharge: Pending orders 09/02/18 00:01 NM barry perf SPECT multi [NM] Routine 09/04/18 06:00 EKG [ECG 12 lead ECG] [ECG] AM 0600 Date of Encounter: 09/03/18 Time of Encounter: 07:52 - Discharge Diagnosis (1) PAF (paroxysmal atrial fibrillation) Priority: Primary Status: Acute (2) Chest pain Priority: Primary Status: Acute Qualifiers: Chest pain type: unspecified Qualified Code(s): R07.9 - Chest pain, unspecified (3) COPD (chronic obstructive pulmonary disease) Priority: Secondary Status: Chronic Qualifiers: COPD type: unspecified COPD Qualified Code(s): J44.9 - Chronic obstructive pulmonary disease, unspecified - Hospital Course Hospital course: Ms. Schmitz is a 58 year old female with past medical history of PAF on xarelto, HTN, DM type II, HTN, and COPD on home O2. She presented for sotalol therapy initiation for recurrent PAF. SHe is s/p 4 doses of sotalol. QT/QTc remains normal. She remained in NSR during her stay, no PAF seen. She will be discharged after her 5th dose this afternoon. EKG at baseline showed SR, QT/QTc 385/427, QRS 93 ms. EKG 09/02/18 shows SR, QT/QTc 417/439, QRS 95 ms. EKG 09/03/18 shows NSR, QT/QTc 420/435, QRS87 ms. On admission she c/o chest pain on the day prior. We did an ischemic work-up including troponin that was found to be normal, stress test completed and was negative for ischemia. TTE completed showed preserved EF. No WMA. CXR also completed for on-going SOB was found to be negative. Pt stated that she lost her new trelegy inhaler and felt more SOB without it. Due to [facility] not carrying her inhaler she was started on albuterol. SOB did improve. She states she is at her baseline. Smoking cessation discussed through out stay. Pt declines NRT. She also reported today that she was not taking her diabetic medication jardiance due to the medication not being affordable. She did not discuss this with her PCP due to a high co-pay for follow-up visits. Hgb A1c was 10 this admission. SSI utilized. construction ironworker helper was consulted and provided resources. She c/o adverse reaction to metformin. I discussed with hospitalist as pancho for medication alternatives who recommended Januvia. She is recommended to follow with PCP in 1-2 weeks and to continue to monitor blood sugars at home. She states that her heart medications are affordable at this time. Time spent discussing smoking cessation with patient: 3 to 10 minutes (Pt is not ready to quit, nicotine patch offered and she declined.) - Time Spent with Patient Total time spent providing and/or coordinating discharge services: Greater than 30 minutes (Med rec, medication assistance/changes, d/c summary and tesching.) - Discharge Medications Prescriptions: Diltiazem CD (24hr) [Cardizem CD] 300 mg PO DAILY #30 cap.er.24h SitaGLIPtin [Januvia] 25 mg PO DAILY #77 tablet Sotalol [Betapace] 80 mg PO Q12H #60 tablet Home Medications: Empagliflozin [Jardiance] 10 mg PO DAILY 06/05/18 [History] hydroCHLOROthiazide [Hydrochlorothiazide] 12.5 mg PO DAILY 06/05/18 [History] Atorvastatin Calcium [Lipitor] 20 mg PO HS 06/06/18 [History] Ergocalciferol (VITAMIN D2) [Vitamin D2] 50,000 unit PO SA 06/06/18 [History] Losartan Potassium [Cozaar] 25 mg PO DAILY 06/06/18 [History] Rivaroxaban [Xarelto] 20 mg PO 1700 30 Days #30 tablet 06/06/18 [Rx] Fluticasone/Vilanterol [Breo Ellipta 100-25 Mcg INH] 1 puff IH DAILY 07/23/18 [History] Oxygen 1 each NS AD #1 each 07/26/18 [Rx] Diltiazem CD (24hr) [Cardizem CD] 300 mg PO DAILY #30 cap.er.24h 09/03/18 [Rx] SitaGLIPtin [Januvia] 25 mg PO DAILY #77 tablet 09/03/18 [Rx] Sotalol [Betapace] 80 mg PO Q12H #60 tablet 09/03/18 [Rx] Allergies/Adverse Reactions: Allergy/AdvReac Type Severity Reaction Status Date / Time aspartame Allergy Hives Verified 08/16/18 15:41 Penicillins [PCN] Allergy Hives Verified 08/16/18 15:41 Date of admission: 09/01/18 09:54 Primary care physician: PCP NONE Consults: 09/02/18 11:27 Consult to Art Therapist [CONS] Routine Reason for SW Consult: financial concerns about medications Discharging clinician: Erwin Kirk Anticipated date of discharge: 09/03/18 Physical Examination Vital Signs, Last 4 Hours Temp Pulse Resp BP Pulse Ox 09/03/18 07:13 97.8 F 69 18 125/90 94 09/03/18 04:46 68 General: Conversant, No Apparent Distress HEENT: Atraumatic, Normocephaly, Mucus Membranes Moist Neck: No JVD, Normal carotid pulses Cardiac: Reg Rate and Rhythm, Normal S1 and S2, No Murmur Lungs: Normal Breath Sounds, No Wheeze, Rales, Rhonchi, Other (Clear to auscultated but diminished. Respirations easy this morning. ) Neuro: Alert and responsive, No focal deficits noted Abdomen: Soft, Non-Tender Skin: No rashes noted on visualized skin Musculoskeletal: No Chest Wall Tenderness Extremities: No Clubbing, No Cyanosis, No Edema, Normal Pulses - Patient Status Disposition: Home, Self-Care Condition: Good Overall status at discharge: patient is progressing back to baseline - Discharge Instructions Follow Up With: Candi Tyler CNP [Advanced Practice Nurse] - 09/10/18 12:30 pm () Marcos Watkins MD [Partnered Physician] - (office to call patient at home with follow up appointment) - Diet and Activity Activity: increase activity as tolerated, wear oxygen at all times Diet: low fat, low cholesterol - VTE Reasons for not Prescribing Prophylaxis: Not indicated-Anticoagulated or INR therapeutic
[2018-09-03] MEDS: Diltiazem CD (24hr) 300 MG CAPSULE PO SCH (08:22)
[2018-09-03] MEDS: hydroCHLOROthiazide 25 MG TABLET PO SCH (08:22)
[2018-09-03] MEDS: Empagliflozin [Jardiance] 10 MG PO SCH (08:24)
[2018-09-03] MEDS: Fluticasone/Vilanterol [Breo Ellipta 100-25 Mcg Inh IH SCH (08:24)
[2018-09-03] MEDS: Insulin LISPRO 300 UNITS/3 ML VIAL SQ SCH ×2 (08:27→11:11)
--- NOTE | 2018-09-03 08:38 | Electrocardiograph Report ---
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
--- NOTE | 2018-09-03 10:00 | Electrocardiograph Report ---
[place] [address] Test Date: 2018-09-03 Pat Name: Nasra Schmitz Department: 110 Room: 2N11 Gender: F Addiction Therapist: DANA : 1960 Requested By: Erwin Kirk Order Number: [id number] Reading MD: Alexy Younger Measurements Intervals [place] Rate: 67 P: 73 MO: 178 QRS: 40 QRSD: 87 T: 63 QT: 420 QTc: 435 Interpretive Statements SINUS RHYTHM Electronically Signed On 09-03-2018 9:58:28 EST by Alexy Younger
[2018-09-03 11:18] VITALS: BP 126/72
== END 2018-09-03 12:39 | disposition home or self-care (01) | DRG 310 ==
LOC: 2NNU 09:54
PROVIDERS: ADMIT Internal Medicine Clinical Cardiac Electrophysiology; ATTEND Internal Medicine Clinical Cardiac Electrophysiology

== ENCOUNTER 2020-07-10 13:30 | Inpatient (IN) ==
[2020-07-10] MEDS ORDERED: Naloxone 0.4 MG/ML INJ IVP PRN (14:56)
[2020-07-10] MEDS ORDERED: Albuterol 2.5 MG/3 ML NEBULIZER IH PRN (15:02)
[2020-07-10] MEDS: methylPREDNISolone 125 MG/2 ML VIAL IVP SCH (15:10)
[2020-07-10] MEDS: Ipratropium/Albuterol Neb 3 ML IH SCH ×3 (15:20→23:36)
[2020-07-10] MEDS ORDERED: *HR* Dextrose 50 % in Water (Vial) 50 ML VIAL IVP PRN (15:57)
[2020-07-10] MEDS ORDERED: D5% in Water 1,000 ML IVC PRN (15:57)
[2020-07-10] MEDS ORDERED: Dextrose Gel 15 GM/37.5 ML TUBE PO PRN ×2 (15:57)
[2020-07-10] MEDS: Dexmedetomidine HCl 400 MCG/100 ML MLS IVC SCH (16:35)
[2020-07-10] MEDS: Insulin LISPRO 300 UNITS/3 ML VIAL SQ SCH ×2 (16:43→20:11)
[2020-07-10 17:20] LABS: Estimated Average Glucose 212 mg/dl
[2020-07-10] MEDS: Doxycycline 100 MG CAPSULE PO SCH (20:11)
[2020-07-11] MEDS: methylPREDNISolone 125 MG/2 ML VIAL IVP SCH ×3 (01:05→15:13)
[2020-07-11] MEDS ORDERED: *HR* Rivaroxaban 10 MG TABLET PO SCH (02:45)
[2020-07-11] MEDS: Dexmedetomidine HCl 400 MCG/100 ML MLS IVC SCH ×4 (02:45→22:25)
[2020-07-11] MEDS: Ipratropium/Albuterol Neb 3 ML IH SCH ×6 (03:19→23:30)
[2020-07-11 05:11] LABS: Basophils % 0.2 %; Hematocrit 34.6 % (35.3-44.9); Hemoglobin 10.3 g/dL (11.5-15.4); Lymphocytes # 0.9 K/mcL (0.6-4.6); Lymphocytes % 11.2 %; Mean Corpuscular HGB Conc 29.8 g/dL (31.6-35.5); Mean Corpuscular Hemoglobin 25.6 pg (28.0-33.3); Mean Corpuscular Volume 86.1 fL (83.0-100.0); Mean Platelet Volume 10.6 fL (9.4-12.4); Monocytes # 0.2 K/mcL (0.0-1.3); Monocytes % 1.9 %; Neutrophils # 7.2 K/mcL (1.6-8.9); Platelet Count 378 K/mcL (140-400); Red Blood Count 4.02 M/mcL (3.82-4.97); Red Cell Distribution Width 14.4 % (11.5-14.5); Segmented Neutrophils % 85.7 %; White Blood Count 8.4 K/mcL (4.3-11.1)
[2020-07-11 05:14] LABS: BUN/Creatinine Ratio 21 (6-26); Blood Urea Nitrogen 11 mg/dL (8-23); Calcium 9.2 mg/dL (8.6-10.3); Carbon Dioxide 33 mEq/L (23-29); Chloride 99 mEq/L (98-107); Glucose 235 mg/dL (70-105); Osmolality,Calculated 297 (280-300); Potassium 4.3 mEq/L (3.5-5.1); Sodium 140 mEq/L (136-145); eGFR For African Americans > 60 (> 60); eGFR For Non-African Americans > 60 (> 60)
[2020-07-11 06:03] LABS: ABG Base Excess 9 mEq/L (-2 to 3); ABG HCO3 36 mEq/L (21-27); ABG Oxygen Saturation 86 % (95-98); ABG PCO2 61 mmHg (35-45); ABG PH 7.38 pH Units (7.32-7.45); ABG PO2 54 mmHg (85-104); ABG TCO2 38 mEq/L (20-26); Blood Gas VT 500 cc
[2020-07-11] MEDS: Insulin LISPRO 300 UNITS/3 ML VIAL SQ SCH ×4 (07:48→20:56)
[2020-07-11] MEDS: Insulin DETEMIR 100 UNIT/ML X5UNITS SQ SCH ×2 (08:59→20:56)
[2020-07-11] MEDS: Doxycycline 100 MG CAPSULE PO SCH ×2 (09:01→20:56)
[2020-07-11] MEDS ORDERED: hydrOXYzine pamoate 25 MG CAPSULE PO PRN (09:41)
[2020-07-11] MEDS ORDERED: Isovue-370 500 ML BOTTLE IVP ONE (10:24)
[2020-07-11] MEDS: Budesonide/Formoterol 160/4.5 1 PUFF INH IH SCH ×2 (11:32→20:10)
[2020-07-11] MEDS: *HR* LORazepam 0.5 MG TABLET PO PRN ×2 (13:40→22:10)
[2020-07-11] MEDS: hydrOXYzine pamoate 25 MG CAPSULE PO PRN (17:08)
[2020-07-11] MEDS ORDERED: *HR* Heparin 5,000 UNIT/ML VIAL IVP ONE (18:05)
[2020-07-11] MEDS ORDERED: Heparin 25,000UNIT/250ML 1/2NS 25,000 UNIT/250 ML IV.SOLN IVC SCH (18:15)
[2020-07-11 19:32] LABS: INR 1.4
[2020-07-11 19:38] LABS: Heparin anti-factor XA UFH 1.18 IU/mL (0.30-0.70)
[2020-07-11 20:23] LABS: Activated Partial Thrombo Time 46.2 Seconds (26.0-36.0)
[2020-07-11] MEDS: *HR* Heparin 5,000 UNIT/ML VIAL IVP PRN (21:52)
[2020-07-11] MEDS: Heparin 25,000UNIT/250ML 1/2NS 25,000 UNIT/250 ML IV.SOLN IVC SCH (21:55)
[2020-07-12] MEDS: methylPREDNISolone 125 MG/2 ML VIAL IVP SCH ×3 (00:34→15:37)
[2020-07-12] MEDS: hydrOXYzine pamoate 25 MG CAPSULE PO PRN ×2 (01:25→12:42)
[2020-07-12] MEDS: Ipratropium/Albuterol Neb 3 ML IH SCH ×5 (03:47→19:55)
[2020-07-12 04:53] LABS: Basophils % 0.2 %; Hematocrit 33.1 % (35.3-44.9); Immature Granulocytes % 0.8 % (0-4); Lymphocytes # 0.9 K/mcL (0.6-4.6); Lymphocytes % 6.7 %; Mean Corpuscular HGB Conc 30.2 g/dL (31.6-35.5); Mean Corpuscular Hemoglobin 25.4 pg (28.0-33.3); Mean Platelet Volume 10.7 fL (9.4-12.4); Monocytes # 0.5 K/mcL (0.0-1.3); Monocytes % 3.6 %; Neutrophils # 11.6 K/mcL (1.6-8.9); Platelet Count 394 K/mcL (140-400); Red Blood Count 3.94 M/mcL (3.82-4.97); Red Cell Distribution Width 14.5 % (11.5-14.5); Segmented Neutrophils % 88.7 %
[2020-07-12 04:57] LABS: White Blood Count 13.1 K/mcL (4.3-11.1)
[2020-07-12 05:23] LABS: BUN/Creatinine Ratio 30 (6-26); Blood Urea Nitrogen 20 mg/dL (8-23); Calcium 9.3 mg/dL (8.6-10.3); Carbon Dioxide 36 mEq/L (23-29); Chloride 99 mEq/L (98-107); Glucose 219 mg/dL (70-105); Osmolality,Calculated 303 (280-300); Potassium 4.4 mEq/L (3.5-5.1); Sodium 142 mEq/L (136-145); eGFR For African Americans > 60 (> 60); eGFR For Non-African Americans > 60 (> 60)
[2020-07-12] MEDS: Dexmedetomidine HCl 400 MCG/100 ML MLS IVC SCH ×3 (06:39→22:27)
[2020-07-12] MEDS: Budesonide/Formoterol 160/4.5 1 PUFF INH IH SCH ×2 (07:36→19:55)
[2020-07-12] MEDS: Insulin DETEMIR 100 UNIT/ML X5UNITS SQ SCH ×2 (07:46→20:56)
[2020-07-12] MEDS: Doxycycline 100 MG CAPSULE PO SCH ×2 (07:46→20:56)
[2020-07-12] MEDS: Insulin LISPRO 300 UNITS/3 ML VIAL SQ SCH ×4 (07:48→20:45)
[2020-07-12] MEDS: *HR* LORazepam 0.5 MG TABLET PO PRN ×2 (08:09→20:56)
[2020-07-12] MEDS: *HR* Heparin 5,000 UNIT/ML VIAL IVP PRN (16:31)
[2020-07-12] MEDS: Heparin 25,000UNIT/250ML 1/2NS 25,000 UNIT/250 ML IV.SOLN IVC SCH (22:32)
[2020-07-13] MEDS: methylPREDNISolone 125 MG/2 ML VIAL IVP SCH ×4 (00:22→23:56)
[2020-07-13] MEDS: hydrOXYzine pamoate 25 MG CAPSULE PO PRN ×3 (00:43→23:56)
[2020-07-13] MEDS: Ipratropium/Albuterol Neb 3 ML IH SCH ×7 (01:15→23:34)
[2020-07-13] MEDS ORDERED: *HR* LORazepam 2 MG/ML VIAL IVP ONE (02:41)
[2020-07-13] MEDS: Melatonin 3 MG TABLET PO SCH ×2 (02:59→20:32)
[2020-07-13 03:27] LABS: Mean Corpuscular HGB Conc 30.3 g/dL (31.6-35.5); Mean Corpuscular Hemoglobin 25.1 pg (28.0-33.3); Mean Corpuscular Volume 82.9 fL (83.0-100.0); Mean Platelet Volume 10.4 fL (9.4-12.4); Platelet Count 370 K/mcL (140-400); Red Blood Count 3.98 M/mcL (3.82-4.97); Red Cell Distribution Width 14.6 % (11.5-14.5); White Blood Count 10.6 K/mcL (4.3-11.1)
[2020-07-13 03:43] LABS: BUN/Creatinine Ratio 42 (6-26); Blood Urea Nitrogen 26 mg/dL (8-23); Calcium 8.8 mg/dL (8.6-10.3); Carbon Dioxide 32 mEq/L (23-29); Chloride 100 mEq/L (98-107); Glucose 216 mg/dL (70-105); Osmolality,Calculated 297 (280-300); Potassium 4.1 mEq/L (3.5-5.1); Sodium 138 mEq/L (136-145); eGFR For African Americans > 60 (> 60); eGFR For Non-African Americans > 60 (> 60)
[2020-07-13] MEDS: Dexmedetomidine HCl 400 MCG/100 ML MLS IVC SCH ×3 (04:42→22:55)
[2020-07-13] MEDS: Budesonide/Formoterol 160/4.5 1 PUFF INH IH SCH ×2 (08:00→20:19)
[2020-07-13] MEDS: Doxycycline 100 MG CAPSULE PO SCH ×2 (08:58→20:33)
[2020-07-13] MEDS: Insulin DETEMIR 100 UNIT/ML X5UNITS SQ SCH ×2 (08:59→20:33)
[2020-07-13] MEDS: Insulin LISPRO 300 UNITS/3 ML VIAL SQ SCH ×4 (09:02→20:33)
[2020-07-13] MEDS: *HR* Heparin 5,000 UNIT/ML VIAL IVP PRN (13:11)
[2020-07-13] MEDS: *HR* LORazepam 0.5 MG TABLET PO PRN ×2 (13:17→17:51)
[2020-07-13] MEDS: Albuterol 2.5 MG/3 ML NEBULIZER IH PRN (17:55)
[2020-07-13] MEDS ORDERED: Fluticasone Propionate Nasal 50 MCG/SPRAY BOTTLE NS SCH (21:00)
[2020-07-13] MEDS ORDERED: Saline Nasal Spray 44 ML BOTTLE NS PRN (23:26)
[2020-07-14] MEDS: *HR* LORazepam 0.5 MG TABLET PO PRN ×2 (02:04→17:07)
[2020-07-14] MEDS: Ipratropium/Albuterol Neb 3 ML IH SCH ×6 (03:50→23:06)
[2020-07-14 03:59] LABS: Hematocrit 33.3 % (35.3-44.9); Hemoglobin 9.9 g/dL (11.5-15.4); Mean Corpuscular HGB Conc 29.7 g/dL (31.6-35.5); Mean Corpuscular Hemoglobin 24.8 pg (28.0-33.3); Mean Corpuscular Volume 83.3 fL (83.0-100.0); Mean Platelet Volume 11.3 fL (9.4-12.4); Platelet Count 356 K/mcL (140-400); Red Cell Distribution Width 14.8 % (11.5-14.5); White Blood Count 10.1 K/mcL (4.3-11.1)
[2020-07-14] MEDS: Dexmedetomidine HCl 400 MCG/100 ML MLS IVC SCH ×3 (04:12→18:03)
[2020-07-14] MEDS: Heparin 25,000UNIT/250ML 1/2NS 25,000 UNIT/250 ML IV.SOLN IVC SCH (04:13)
[2020-07-14 04:16] LABS: BUN/Creatinine Ratio 38 (6-26); Blood Urea Nitrogen 26 mg/dL (8-23); Calcium 8.6 mg/dL (8.6-10.3); Carbon Dioxide 33 mEq/L (23-29); Chloride 102 mEq/L (98-107); Glucose 224 mg/dL (70-105); Osmolality,Calculated 302 (280-300); Potassium 4.4 mEq/L (3.5-5.1); Sodium 140 mEq/L (136-145); eGFR For African Americans > 60 (> 60); eGFR For Non-African Americans > 60 (> 60)
[2020-07-14] MEDS: *HR* Heparin 5,000 UNIT/ML VIAL IVP PRN (06:27)
[2020-07-14] MEDS: Budesonide/Formoterol 160/4.5 1 PUFF INH IH SCH ×2 (07:53→19:58)
[2020-07-14] MEDS: Insulin LISPRO 300 UNITS/3 ML VIAL SQ SCH ×4 (09:20→21:10)
[2020-07-14] MEDS: methylPREDNISolone 125 MG/2 ML VIAL IVP SCH ×2 (09:21→17:06)
[2020-07-14] MEDS: Doxycycline 100 MG CAPSULE PO SCH ×2 (09:21→22:15)
[2020-07-14] MEDS: Insulin DETEMIR 100 UNIT/ML X5UNITS SQ SCH ×2 (09:25→22:15)
[2020-07-14] MEDS: hydrOXYzine pamoate 25 MG CAPSULE PO PRN ×2 (12:45→22:15)
[2020-07-14] MEDS: Albuterol 2.5 MG/3 ML NEBULIZER IH PRN ×2 (20:03→23:06)
[2020-07-14] MEDS: Melatonin 3 MG TABLET PO SCH (22:15)
[2020-07-14] MEDS: Magic Mouthwash 10 ML UD Cup PO SCH (23:12)
[2020-07-15] MEDS ORDERED: *HR* LORazepam 2 MG/ML VIAL IVP ONE (00:51)
[2020-07-15] MEDS: methylPREDNISolone 125 MG/2 ML VIAL IVP SCH ×4 (00:59→23:34)
[2020-07-15] MEDS: Dexmedetomidine HCl 400 MCG/100 ML MLS IVC SCH ×3 (01:12→20:05)
[2020-07-15] MEDS: Albuterol 2.5 MG/3 ML NEBULIZER IH PRN ×5 (01:21→22:39)
[2020-07-15] MEDS: Ipratropium/Albuterol Neb 3 ML IH SCH ×6 (03:43→23:47)
[2020-07-15 04:19] LABS: Hematocrit 33.4 % (35.3-44.9); Hemoglobin 10.2 g/dL (11.5-15.4); Mean Corpuscular HGB Conc 30.5 g/dL (31.6-35.5); Mean Corpuscular Hemoglobin 25.6 pg (28.0-33.3); Mean Corpuscular Volume 83.7 fL (83.0-100.0); Mean Platelet Volume 10.8 fL (9.4-12.4); Platelet Count 350 K/mcL (140-400); Red Blood Count 3.99 M/mcL (3.82-4.97); Red Cell Distribution Width 14.6 % (11.5-14.5); White Blood Count 12.3 K/mcL (4.3-11.1)
[2020-07-15 04:35] LABS: BUN/Creatinine Ratio 38 (6-26); Blood Urea Nitrogen 25 mg/dL (8-23); Calcium 8.6 mg/dL (8.6-10.3); Carbon Dioxide 29 mEq/L (23-29); Chloride 102 mEq/L (98-107); Glucose 225 mg/dL (70-105); Osmolality,Calculated 299 (280-300); Potassium 4.4 mEq/L (3.5-5.1); Sodium 139 mEq/L (136-145); eGFR For African Americans > 60 (> 60); eGFR For Non-African Americans > 60 (> 60)
[2020-07-15] MEDS: Budesonide/Formoterol 160/4.5 1 PUFF INH IH SCH ×2 (07:51→19:55)
[2020-07-15] MEDS: Insulin LISPRO 300 UNITS/3 ML VIAL SQ SCH ×4 (09:16→20:06)
[2020-07-15] MEDS: Doxycycline 100 MG CAPSULE PO SCH ×2 (09:18→20:07)
[2020-07-15] MEDS: Insulin DETEMIR 100 UNIT/ML X5UNITS SQ SCH ×2 (09:18→20:06)
[2020-07-15] MEDS: *HR* LORazepam 0.5 MG TABLET PO PRN ×2 (09:22→16:29)
[2020-07-15] MEDS: hydrOXYzine pamoate 25 MG CAPSULE PO PRN ×2 (14:04→23:34)
[2020-07-15] MEDS: Magic Mouthwash 10 ML UD Cup PO SCH ×3 (15:30→22:50)
[2020-07-15] MEDS: Melatonin 3 MG TABLET PO SCH (22:50)
[2020-07-16] MEDS: *HR* LORazepam 0.5 MG TABLET PO PRN ×3 (02:13→20:54)
[2020-07-16] MEDS: Dexmedetomidine HCl 400 MCG/100 ML MLS IVC SCH (02:48)
[2020-07-16] MEDS: Ipratropium/Albuterol Neb 3 ML IH SCH ×5 (03:07→20:09)
[2020-07-16 05:54] LABS: Basophils % 0.3 %; Eosinophils # 0.5 K/mcL (0.0-0.6); Eosinophils % 3.8 %; Hematocrit 34.4 % (35.3-44.9); Hemoglobin 10.4 g/dL (11.5-15.4); Immature Granulocytes % 3.5 % (0-4); Lymphocytes # 0.8 K/mcL (0.6-4.6); Lymphocytes % 6.3 %; Mean Corpuscular HGB Conc 30.2 g/dL (31.6-35.5); Mean Corpuscular Hemoglobin 25.4 pg (28.0-33.3); Mean Corpuscular Volume 84.1 fL (83.0-100.0); Mean Platelet Volume 11.1 fL (9.4-12.4); Monocytes # 0.6 K/mcL (0.0-1.3); Monocytes % 4.2 %; Neutrophils # 10.6 K/mcL (1.6-8.9); Nucleated Red Blood Cells 0.2 /100 WBC (0); Platelet Count 313 K/mcL (140-400); Red Blood Count 4.09 M/mcL (3.82-4.97); Red Cell Distribution Width 14.7 % (11.5-14.5); Segmented Neutrophils % 81.9 %
[2020-07-16 06:17] LABS: BUN/Creatinine Ratio 30 (6-26); Blood Urea Nitrogen 23 mg/dL (8-23); Calcium 8.3 mg/dL (8.6-10.3); Carbon Dioxide 27 mEq/L (23-29); Chloride 102 mEq/L (98-107); Glucose 294 mg/dL (70-105); Osmolality,Calculated 297 (280-300); Potassium 4.8 mEq/L (3.5-5.1); Sodium 136 mEq/L (136-145); eGFR For African Americans > 60 (> 60); eGFR For Non-African Americans > 60 (> 60)
[2020-07-16] MEDS: Budesonide/Formoterol 160/4.5 1 PUFF INH IH SCH ×2 (07:15→20:11)
[2020-07-16] MEDS: methylPREDNISolone 125 MG/2 ML VIAL IVP SCH ×2 (08:06→17:05)
[2020-07-16] MEDS: Insulin LISPRO 300 UNITS/3 ML VIAL SQ SCH ×4 (08:06→20:57)
[2020-07-16] MEDS: Doxycycline 100 MG CAPSULE PO SCH ×2 (08:07→20:54)
[2020-07-16] MEDS: hydrOXYzine pamoate 25 MG CAPSULE PO PRN ×2 (08:07→15:19)
[2020-07-16] MEDS: Magic Mouthwash 10 ML UD Cup PO SCH ×3 (08:09→17:06)
[2020-07-16] MEDS: Insulin DETEMIR 100 UNIT/ML X5UNITS SQ SCH ×2 (08:18→20:57)
[2020-07-16] MEDS: Heparin 25,000UNIT/250ML 1/2NS 25,000 UNIT/250 ML IV.SOLN IVC SCH (12:35)
[2020-07-16] MEDS: Melatonin 3 MG TABLET PO SCH (20:54)
[2020-07-16] MEDS: Nystatin POWDER 30 GM BOTTLE TP SCH (20:59)
[2020-07-16] MEDS: MethylPREDNISolone 40 MG/ML VIAL IVP SCH (23:36)
[2020-07-17] MEDS: Ipratropium/Albuterol Neb 3 ML IH SCH ×7 (00:06→23:31)
[2020-07-17] MEDS: hydrOXYzine pamoate 25 MG CAPSULE PO PRN ×3 (01:28→17:52)
[2020-07-17] MEDS: Albuterol 2.5 MG/3 ML NEBULIZER IH PRN (01:59)
[2020-07-17] MEDS: *HR* LORazepam 0.5 MG TABLET PO PRN ×3 (04:55→22:06)
[2020-07-17 06:42] LABS: Basophils # 0.1 K/mcL (0.0-0.2); Basophils % 0.5 %; Hematocrit 34.2 % (35.3-44.9); Hemoglobin 10.4 g/dL (11.5-15.4); Immature Granulocytes % 3.8 % (0-4); Lymphocytes # 1.4 K/mcL (0.6-4.6); Lymphocytes % 7.2 %; Mean Corpuscular HGB Conc 30.4 g/dL (31.6-35.5); Mean Corpuscular Hemoglobin 24.9 pg (28.0-33.3); Mean Platelet Volume 11.6 fL (9.4-12.4); Monocytes # 1.4 K/mcL (0.0-1.3); Monocytes % 7.5 %; Neutrophils # 15.2 K/mcL (1.6-8.9); Nucleated Red Blood Cells 0.2 /100 WBC (0); Platelet Count 355 K/mcL (140-400); Red Blood Count 4.17 M/mcL (3.82-4.97); Red Cell Distribution Width 15.1 % (11.5-14.5); White Blood Count 18.7 K/mcL (4.3-11.1)
[2020-07-17 07:00] LABS: BUN/Creatinine Ratio 38 (6-26); Blood Urea Nitrogen 28 mg/dL (8-23); Calcium 8.7 mg/dL (8.6-10.3); Carbon Dioxide 27 mEq/L (23-29); Chloride 103 mEq/L (98-107); Glucose 302 mg/dL (70-105); Osmolality,Calculated 303 (280-300); Potassium 4.1 mEq/L (3.5-5.1); Sodium 138 mEq/L (136-145); eGFR For African Americans > 60 (> 60); eGFR For Non-African Americans > 60 (> 60)
[2020-07-17] MEDS: Doxycycline 100 MG CAPSULE PO SCH ×2 (07:33→20:05)
[2020-07-17] MEDS: DilTIAZem CD (24hr) 300 MG CAP.ER.24H PO SCH (07:33)
[2020-07-17] MEDS: MethylPREDNISolone 40 MG/ML VIAL IVP SCH ×2 (07:33→16:35)
[2020-07-17] MEDS: Nystatin POWDER 30 GM BOTTLE TP SCH ×2 (07:34→20:06)
[2020-07-17] MEDS: Magic Mouthwash 10 ML UD Cup PO SCH ×2 (07:34→12:57)
[2020-07-17] MEDS: polyethylene glycoL 3350 17 GM POWD.PACK PO SCH (07:34)
[2020-07-17] MEDS: Insulin LISPRO 300 UNITS/3 ML VIAL SQ SCH ×4 (07:35→22:07)
[2020-07-17] MEDS: Insulin DETEMIR 100 UNIT/ML X5UNITS SQ SCH ×2 (07:37→20:05)
[2020-07-17] MEDS: *HR* Heparin 5,000 UNIT/ML VIAL IVP PRN (07:48)
[2020-07-17] MEDS: Budesonide/Formoterol 160/4.5 1 PUFF INH IH SCH ×2 (07:57→19:46)
[2020-07-17] MEDS: Apixaban 5 MG TABLET PO SCH (18:32)
[2020-07-17] MEDS: Melatonin 3 MG TABLET PO SCH (19:39)
[2020-07-17 22:01] LABS: ABG Base Excess 5 mEq/L (-2 to 3); ABG HCO3 29 mEq/L (21-27); ABG Oxygen Saturation 91 % (95-98); ABG PCO2 41 mmHg (35-45); ABG PH 7.46 pH Units (7.32-7.45); ABG PO2 57 mmHg (85-104); ABG TCO2 30 mEq/L (20-26)
[2020-07-17] MEDS ORDERED: *HR* LORazepam 2 MG/ML VIAL IVP ONE (22:44)
[2020-07-18] MEDS: MethylPREDNISolone 40 MG/ML VIAL IVP SCH ×2 (01:04→09:16)
[2020-07-18] MEDS: hydrOXYzine pamoate 25 MG CAPSULE PO PRN ×3 (02:26→22:24)
[2020-07-18] MEDS: Ipratropium/Albuterol Neb 3 ML IH SCH ×6 (03:57→23:49)
[2020-07-18] MEDS: Budesonide/Formoterol 160/4.5 1 PUFF INH IH SCH ×2 (07:39→19:45)
[2020-07-18] MEDS: Doxycycline 100 MG CAPSULE PO SCH (09:16)
[2020-07-18] MEDS: DilTIAZem CD (24hr) 300 MG CAP.ER.24H PO SCH (09:16)
[2020-07-18] MEDS: Apixaban 5 MG TABLET PO SCH ×2 (09:16→21:13)
[2020-07-18] MEDS: polyethylene glycoL 3350 17 GM POWD.PACK PO SCH (09:20)
[2020-07-18] MEDS: Insulin LISPRO 300 UNITS/3 ML VIAL SQ SCH ×4 (09:21→21:14)
[2020-07-18] MEDS: Nystatin POWDER 30 GM BOTTLE TP SCH ×2 (09:23→21:15)
[2020-07-18] MEDS: Insulin DETEMIR 100 UNIT/ML X5UNITS SQ SCH ×2 (09:23→21:14)
[2020-07-18 11:15] LABS: Basophils # 0.1 K/mcL (0.0-0.2); Basophils % 0.6 %; Hemoglobin 10.7 g/dL (11.5-15.4); Immature Granulocytes % 4.6 % (0-4); Lymphocytes # 0.9 K/mcL (0.6-4.6); Lymphocytes % 5.4 %; Mean Corpuscular HGB Conc 29.7 g/dL (31.6-35.5); Mean Corpuscular Hemoglobin 24.4 pg (28.0-33.3); Mean Corpuscular Volume 82.2 fL (83.0-100.0); Mean Platelet Volume 11.2 fL (9.4-12.4); Monocytes # 0.9 K/mcL (0.0-1.3); Monocytes % 5.4 %; Neutrophils # 13.8 K/mcL (1.6-8.9); Nucleated Red Blood Cells 0.4 /100 WBC (0); Platelet Count 351 K/mcL (140-400); Red Blood Count 4.38 M/mcL (3.82-4.97); Red Cell Distribution Width 15.3 % (11.5-14.5); White Blood Count 16.4 K/mcL (4.3-11.1)
[2020-07-18 11:59] LABS: BUN/Creatinine Ratio 37 (6-26); Blood Urea Nitrogen 28 mg/dL (8-23); Calcium 8.6 mg/dL (8.6-10.3); Carbon Dioxide 29 mEq/L (23-29); Chloride 101 mEq/L (98-107); Glucose 333 mg/dL (70-105); Osmolality,Calculated 305 (280-300); Potassium 4.3 mEq/L (3.5-5.1); Sodium 138 mEq/L (136-145); eGFR For African Americans > 60 (> 60); eGFR For Non-African Americans > 60 (> 60)
[2020-07-18] MEDS: *HR* LORazepam 0.5 MG TABLET PO PRN (16:56)
[2020-07-18] MEDS: Melatonin 3 MG TABLET PO SCH (21:15)
[2020-07-19] MEDS: *HR* LORazepam 0.5 MG TABLET PO PRN ×2 (01:59→16:55)
[2020-07-19] MEDS: Ipratropium/Albuterol Neb 3 ML IH SCH ×6 (03:56→23:59)
[2020-07-19] MEDS: Budesonide/Formoterol 160/4.5 1 PUFF INH IH SCH ×2 (07:38→20:23)
[2020-07-19] MEDS: Apixaban 5 MG TABLET PO SCH ×2 (08:08→21:18)
[2020-07-19] MEDS: Insulin DETEMIR 100 UNIT/ML X5UNITS SQ SCH ×2 (08:08→21:49)
[2020-07-19] MEDS: Insulin LISPRO 300 UNITS/3 ML VIAL SQ SCH ×4 (08:08→21:21)
[2020-07-19] MEDS: predniSONE 20 MG TABLET PO SCH ×2 (08:08→16:55)
[2020-07-19] MEDS: DilTIAZem CD (24hr) 300 MG CAP.ER.24H PO SCH (08:08)
[2020-07-19] MEDS: Nystatin POWDER 30 GM BOTTLE TP SCH ×2 (08:11→21:49)
[2020-07-19] MEDS: polyethylene glycoL 3350 17 GM POWD.PACK PO SCH (08:11)
[2020-07-19 08:48] LABS: Basophils # 0.1 K/mcL (0.0-0.2); Basophils % 0.6 %; Eosinophils % 0.1 %; Hematocrit 35.5 % (35.3-44.9); Hemoglobin 10.5 g/dL (11.5-15.4); Immature Granulocytes % 4.8 % (0-4); Lymphocytes # 2.7 K/mcL (0.6-4.6); Lymphocytes % 12.6 %; Mean Corpuscular HGB Conc 29.6 g/dL (31.6-35.5); Mean Corpuscular Hemoglobin 24.6 pg (28.0-33.3); Mean Corpuscular Volume 83.3 fL (83.0-100.0); Mean Platelet Volume 11.1 fL (9.4-12.4); Monocytes # 2.5 K/mcL (0.0-1.3); Monocytes % 11.8 %; Nucleated Red Blood Cells 0.5 /100 WBC (0); Platelet Count 330 K/mcL (140-400); Red Blood Count 4.26 M/mcL (3.82-4.97); Red Cell Distribution Width 15.6 % (11.5-14.5); Segmented Neutrophils % 70.1 %; White Blood Count 21.3 K/mcL (4.3-11.1)
[2020-07-19 09:01] LABS: BUN/Creatinine Ratio 40 (6-26); Blood Urea Nitrogen 31 mg/dL (8-23); Calcium 8.2 mg/dL (8.6-10.3); Carbon Dioxide 30 mEq/L (23-29); Chloride 105 mEq/L (98-107); Glucose 166 mg/dL (70-105); Osmolality,Calculated 300 (280-300); Potassium 4.3 mEq/L (3.5-5.1); Sodium 140 mEq/L (136-145); eGFR For African Americans > 60 (> 60); eGFR For Non-African Americans > 60 (> 60)
[2020-07-19] MEDS: hydrOXYzine pamoate 25 MG CAPSULE PO PRN ×2 (10:10→21:18)
[2020-07-19] MEDS ORDERED: *HR* LORazepam 2 MG/ML VIAL IVP ONE (13:59)
[2020-07-19] MEDS ORDERED: *HR* LORazepam 0.5 MG TABLET PO ONE (17:00)
[2020-07-19] MEDS ORDERED: Furosemide 40 MG TABLET PO SCH (17:15)
[2020-07-19] MEDS: Melatonin 3 MG TABLET PO SCH (21:28)
[2020-07-20] MEDS: *HR* LORazepam 0.5 MG TABLET PO PRN ×2 (01:58→13:00)
[2020-07-20] MEDS: Ipratropium/Albuterol Neb 3 ML IH SCH ×3 (03:44→11:06)
[2020-07-20 05:11] LABS: Basophils # 0.1 K/mcL (0.0-0.2); Basophils % 0.7 %; Hematocrit 35.6 % (35.3-44.9); Hemoglobin 10.7 g/dL (11.5-15.4); Lymphocytes # 1.8 K/mcL (0.6-4.6); Lymphocytes % 9.1 %; Mean Corpuscular HGB Conc 30.1 g/dL (31.6-35.5); Mean Corpuscular Hemoglobin 24.8 pg (28.0-33.3); Mean Corpuscular Volume 82.4 fL (83.0-100.0); Mean Platelet Volume 11.7 fL (9.4-12.4); Monocytes # 1.6 K/mcL (0.0-1.3); Monocytes % 7.9 %; Nucleated Red Blood Cells 0.6 /100 WBC (0); Platelet Count 351 K/mcL (140-400); Red Blood Count 4.32 M/mcL (3.82-4.97); Red Cell Distribution Width 15.3 % (11.5-14.5); Segmented Neutrophils % 76.3 %; White Blood Count 19.7 K/mcL (4.3-11.1)
[2020-07-20 05:25] LABS: BUN/Creatinine Ratio 38 (6-26); Blood Urea Nitrogen 28 mg/dL (8-23); Calcium 8.7 mg/dL (8.6-10.3); Carbon Dioxide 33 mEq/L (23-29); Chloride 95 mEq/L (98-107); Glucose 260 mg/dL (70-105); Osmolality,Calculated 296 (280-300); Potassium 4.2 mEq/L (3.5-5.1); Sodium 136 mEq/L (136-145); eGFR For African Americans > 60 (> 60); eGFR For Non-African Americans > 60 (> 60)
[2020-07-20] MEDS: Heparin 25,000UNIT/250ML 1/2NS 25,000 UNIT/250 ML IV.SOLN IVC SCH (07:23)
[2020-07-20] MEDS: Magic Mouthwash 10 ML UD Cup PO SCH (07:24)
[2020-07-20] MEDS: Budesonide/Formoterol 160/4.5 1 PUFF INH IH SCH (07:28)
[2020-07-20 07:55] LABS: Hypochromasia Present (Not Present); Microcytosis Present (Not Present); Platelet Estimate Normal (Normal); Reactive Lymphocytes Present (Not Present); Toxic Granulation Present (Not Present)
[2020-07-20] MEDS: predniSONE 20 MG TABLET PO SCH (09:57)
[2020-07-20] MEDS: DilTIAZem CD (24hr) 300 MG CAP.ER.24H PO SCH (09:57)
[2020-07-20] MEDS: Insulin LISPRO 300 UNITS/3 ML VIAL SQ SCH (09:58)
[2020-07-20] MEDS: Apixaban 5 MG TABLET PO SCH (09:58)
[2020-07-20] MEDS: Nystatin POWDER 30 GM BOTTLE TP SCH (09:59)
[2020-07-20] MEDS: polyethylene glycoL 3350 17 GM POWD.PACK PO SCH (09:59)
[2020-07-20] MEDS: Insulin DETEMIR 100 UNIT/ML X5UNITS SQ SCH (09:59)
[2020-07-20 10:34] VITALS: BP 147/77
[2020-07-24] MEDS ORDERED: Apixaban 5 MG TABLET PO SCH (21:00)
== END 2020-07-20 14:50 | disposition home health service (06) | DRG 190 ==
LOC: 2NNU → SUATTDRO 07-11 15:55 → 3ANU 07-17 16:18
PROVIDERS: ADMIT Internal Medicine; ATTEND Internal Medicine

== ENCOUNTER 2022-01-24 01:12 | Inpatient (IN) ==
[2022-01-24] MEDS ORDERED: Naloxone 0.4 MG/ML INJ IVP PRN (11:12)
[2022-01-24] MEDS ORDERED: Acetaminophen 325 MG TABLET PO PRN (11:12)
[2022-01-24] MEDS ORDERED: Dextrose 4 GM Chewable Tablets PO PRN ×2 (11:45)
[2022-01-24] MEDS ORDERED: D5% in Water 1,000 ML IVC PRN (11:45)
[2022-01-24] MEDS ORDERED: *HR* Dextrose 50 % in Water (Syg) 50 ML SYRINGE IVP PRN (11:45)
[2022-01-24 14:42] LABS: Basophils # 0.1 K/mcL (0.0-0.2); Basophils % 0.8 %; Eosinophils # 0.1 K/mcL (0.0-0.6); Eosinophils % 1.1 %; Hematocrit 25.2 % (35.3-44.9); Immature Granulocytes % 0.9 % (0-4); Lymphocytes # 1.1 K/mcL (0.6-4.6); Lymphocytes % 8.2 %; Mean Corpuscular Hemoglobin 19.6 pg (28.0-33.3); Mean Corpuscular Volume 67.7 fL (83.0-100.0); Mean Platelet Volume 9.6 fL (9.4-12.4); Monocytes # 1.4 K/mcL (0.0-1.3); Monocytes % 11.1 %; Nucleated Red Blood Cells 1.5 /100 WBC (0); Platelet Count 469 K/mcL (140-400); Red Blood Count 3.72 M/mcL (3.82-4.97); Red Cell Distribution Width 26.5 % (11.5-14.5); Segmented Neutrophils % 77.9 %
[2022-01-24 14:46] LABS: Hemoglobin 7.3 g/dL (11.5-15.4); Neutrophils # 10.1 K/mcL (1.6-8.9)
[2022-01-24] MEDS ORDERED: 0.9 % Sodium Chloride 250 ML IVC SCH (15:00)
[2022-01-24 15:03] LABS: % Iron Saturation 2 % (15-50); Iron 11 mcg/dL (50-170); Transferrin 359 mg/dL (203-362)
[2022-01-24 15:16] LABS: Anisocytosis 2+ (Not Present); Hypochromasia Present (Not Present); Microcytosis Present (Not Present); Platelet Estimate Increased (Normal)
[2022-01-24 15:17] LABS: Poikilocytosis 1+ (Not Present); Polychromasia 1+ (Not Present)
[2022-01-24] MEDS: Ipratropium/Albuterol Neb 3 ML IH PRN ×2 (16:11→21:43)
[2022-01-24] MEDS: *HR* LORazepam 0.5 MG TABLET PO PRN (16:13)
[2022-01-24] MEDS: Insulin LISPRO 300 UNITS/3 ML VIAL SUBQ SCH (16:18)
[2022-01-24] MEDS ORDERED: Insulin DETEMIR 100 UNIT/ML X5UNITS SUBQ SCH (21:00)
[2022-01-25] MEDS: *HR* LORazepam 0.5 MG TABLET PO PRN (00:34)
[2022-01-25 01:15] LABS: Basophils # 0.1 K/mcL (0.0-0.2); Basophils % 0.7 %; Eosinophils # 0.2 K/mcL (0.0-0.6); Eosinophils % 1.2 %; Hematocrit 27.6 % (35.3-44.9); Hemoglobin 8.1 g/dL (11.5-15.4); Lymphocytes # 1.9 K/mcL (0.6-4.6); Lymphocytes % 14.3 %; Mean Corpuscular HGB Conc 29.3 g/dL (31.6-35.5); Mean Corpuscular Hemoglobin 20.3 pg (28.0-33.3); Mean Corpuscular Volume 69.2 fL (83.0-100.0); Mean Platelet Volume 9.4 fL (9.4-12.4); Monocytes # 1.5 K/mcL (0.0-1.3); Monocytes % 10.8 %; Neutrophils # 9.7 K/mcL (1.6-8.9); Nucleated Red Blood Cells 1.1 /100 WBC (0); Platelet Count 383 K/mcL (140-400); Red Blood Count 3.99 M/mcL (3.82-4.97); Red Cell Distribution Width 27.5 % (11.5-14.5); White Blood Count 13.5 K/mcL (4.3-11.1)
[2022-01-25 01:36] LABS: BUN/Creatinine Ratio 12 (6-26); Blood Urea Nitrogen 7 mg/dL (8-23); Calcium 8.7 mg/dL (8.6-10.3); Carbon Dioxide 29 mEq/L (23-29); Chloride 98 mEq/L (98-107); Glucose 87 mg/dL (70-105); Osmolality,Calculated 277 (280-300); Sodium 135 mEq/L (136-145); eGFR For African Americans > 60 (> 60); eGFR For Non-African Americans > 60 (> 60)
[2022-01-25 02:02] LABS: Anisocytosis 2+ (Not Present); Hypochromasia Present (Not Present); Microcytosis Present (Not Present); Platelet Estimate Normal (Normal)
[2022-01-25] MEDS ORDERED: *HR* Enoxaparin 30 MG/0.3 ML SYRINGE SQ SCH (06:00)
[2022-01-25 07:02] VITALS: PULSE 103; TEMP 98.8
[2022-01-25] MEDS: Insulin LISPRO 300 UNITS/3 ML VIAL SUBQ SCH ×2 (07:17→10:48)
[2022-01-25] MEDS ORDERED: Iron Sucrose Complex 400 MG in 0.9 % Sodium Chloride 250 ML IVPB ONE (07:47)
[2022-01-25] MEDS ORDERED: *HR* Acetaminophen w/Cod 300-30 mg 1 TAB TABLET PO PRN ×2 (08:39→09:01)
[2022-01-25] MEDS ORDERED: Albuterol 2.5 MG/3 ML NEBULIZER IH PRN (09:01)
[2022-01-25] MEDS ORDERED: Ondansetron ODT 4 MG TAB.RAPDIS SL PRN (09:01)
[2022-01-25] MEDS ORDERED: DilTIAZem CD (24hr) 300 MG CAP.ER.24H PO SCH (09:15)
[2022-01-25] MEDS ORDERED: predniSONE 10 MG TABLET PO SCH (09:15)
[2022-01-25] MEDS ORDERED: *HR* Digoxin 0.25 MG TABLET PO SCH (09:15)
[2022-01-25] MEDS ORDERED: DilTIAZem CD (24hr) 120 MG CAP.ER.24H PO SCH (09:15)
[2022-01-25] MEDS: *HR* LORazepam 1 MG TABLET PO SCH ×2 (09:38→12:02)
[2022-01-25] MEDS: Ipratropium/Albuterol Neb 3 ML IH PRN (09:45)
[2022-01-25 10:49] VITALS: BP 130/67; O2SAT 88
[2022-01-25] MEDS ORDERED: Apixaban 5 MG TABLET PO SCH (21:00)
== END 2022-01-25 14:12 | disposition hospice, inpatient (51) | DRG 812 ==
LOC: 2ANU → SUATTDRO 10:21
PROVIDERS: ADMIT Internal Medicine; ATTEND Internal Medicine